=== PATIENT | female | born 1940 | race Caucasian/White ===

== ENCOUNTER → 2017-11-02 | Day surgery (SDC) | payer MEDICARE ==
[2017-11-01 09:35] LABS: BASOPHILS # (AUTO) 0.1 (0.0-0.1); BASOPHILS % 1.2 % (0.0-1.0); EOSINOPHILS # (AUTO) 0.3 (0.0-0.4); EOSINOPHILS % 4.9 % (0.0-6.0); HEMOGLOBIN 14.8 g/dL (12.0-16.0); LYMPHOCYTES # (AUTO) 1.3 (1.0-3.2); LYMPHOCYTES % 18.7 % (18.0-39.1); MEAN CORPUSCULAR HEMOGLOBIN 32.5 pg (28-32); MEAN CORPUSCULAR HGB CONC 33.6 g/dL (31-35); MEAN CORPUSCULAR VOLUME 96.7 fL (81-99); MONOCYTES # (AUTO) 0.6 (0.2-0.8); MONOCYTES % 9.2 % (4.4-11.3); NEUTROPHILS # (AUTO) 4.4 (2.1-6.9); PLATELET COUNT 227 x10e3/uL (140-360); RED BLOOD COUNT 4.55 x10e6/uL (3.6-5.1); RED CELL DISTRIBUTION WIDTH 12.3 % (11.7-14.4)
[~2017-11-02] MED LIST: ALBUTEROL SULF8.5 GM; ALBUTEROL2.5 MG/3 M INH; AMBIEN10 MG PO; ASPIR 8181 MG PO; BIOTIN2500 MCG PO; BREO INH; CALCIUM PO; CENTRUM SILVER1 EAC1; DORZOLAMIDE HCL10 ML OU; DULERA 100 MCG/13 GM IH; ESGIC 50-325-41 EACH PO; FENTANYL CITRATE/PF 100MCG/2 ML INJ ONE; FISH OIL 1,0001 EAC2 PO; FLUTICASONE PRO16 GM; GLIPIZIDE5 MG PO; IOPAMIDOL 200 MG/ML 20 ML VIAL IT ONE; KLOR-CON 1010 MEQ PO; LEVOTHYROXINE100 MCG PO; LIDOCAINE HCL 1% 30ML-PF VIAL ONE; LIDOCAINE HCL 2% LOCAL INJ 5 ML SDV VIAL INJ ONE; MELOXICAM7.5 MG PO; MIDAZOLAM HCL 2 MG/2 ML VIAL ONE; MONTELUKAST SOD10 MG PO; NITROFURANTOIN100 MG PO; OMEPRAZOLE40 MG PO; PRESERVISION T1 EACH PO; PROPOFOL IV EMULSION 10 MG/ML 50 ML VIAL ONE; RANITIDINE HCL150 MG PO; TRAZODONE PO; TRIAMCINOLONE ACET 40 MG/ML VIAL ONE; TYLENOL; VITAMIN D; VITAMIN D PO; VITAMIN D1000 UNI1 PO; VITAMIN D400 UNIT PO
--- OUTSIDE RECORDS SUMMARY | 2017-11-02 05:32 | XMS REPORT ---
Author Author [facility] Address Unknown Phone Unavailable Care Team Providers Care Car Tester Name Role Phone RILEY SHIRLEY Unavailable Unavailable Problems This patient has no known problems. Allergies, Adverse Reactions, Alerts This patient has no known allergies or adverse reactions. Medications This patient has no known medications. Results Test Description Test Time Test Comments Text Results Atomic Results Result Comments MRI SPINE LUMBAR WO [place] [id number] Patient Name: BAYLEE WILLSON MR #: [id number] : 1940 Age/Sex: 76/F Req #: [id number] [facility] Physician: Ordered by: RILEY SHIRLEY MD Report #: [id number] Location: MRI Room/Bed: Procedure: [id number] MRI/MRI SPINE LUMBAR WO Exam Date: 06/14/17 Exam Time: 0804 REPORT STATUS: Signed EXAMINATION: MRI of the lumbar spine without contrast HISTORY: Low back pain radiating to the right with numbness, sacroiliitis COMPARISON: Lumbar spine MRI and 04/30/2013 TECHNIQUE: Sagittal T1, T2, STIR; axial T2 and proton density. FINDINGS: It is assumed that there are 5 lumbar vertebrae. Curvature/Alignment: Normal lordosis. Persistent grade 1 degenerative anterolisthesis at L4-5 and L5-S1. Dextroscoliosis with apex at L3-L4 with left distal compensatory curve. Vertebrae: No evidence of recent fracture, infection, or neoplasm. Chronic endplate degenerative changes from L3 to L5 Conus: Normal, terminating at L1-L2 Cauda equina: Unremarkable. Lower thoracic: Unremarkable. Paraspinal soft tissues: Severe atrophy of the paraspinal muscles Degenerative changes : L1-L2: Unremarkable. L2-L3: Asymmetric to the right disc bulge and 2 mm left subarticular disc protrusion, bilateral facet arthrosis. Mild right foraminal stenoses, no significant canal stenosis L3-L4: Decreased disc height and T2 signal intensity, asymmetric to the right disc osteophyte and bilateral facet arthrosis. Mild canal and left foraminal stenosis. Moderate right foraminal stenoses L4-L5: Decreased disc height, asymmetric to the left disc osteophyte, ligamenta flava thickening and advanced facet arthrosis. Moderately severe spinal canal and left foraminal stenoses. L5-S1: Diffuse disc bulge and advanced facet arthrosis. Moderate spinal canal and mild left foraminal stenosis. Particularly there is effacement of the left lateral recess and minimal dorsal displacement of the traversing left S1 Sacroiliac joints: Mild degenerative changes, no acute inflammation or edema. IMPRESSION: 1. Unchanged grade 1 degenerative anterolisthesis at L4-5 and L5-S1. 2. Moderate to severe degenerative foraminal stenosis on the right at L3-L4 and on the left at L4-L5. 3. Moderately severe degenerative spinal canal stenosis at L4-5 and mild at L3-4 and L5-S1. Signed by: Dr. Kyrie Diana M.D. on 06/14/2017 10:54 AM Dictated By: KYRIE DIANA MD [id number] Transcribed By: ALBIN on 06/14/17 1058 COPY TO: RILEY SHIRLEY MD
== END | disposition home or self-care (01) ==
LOC: OR 05:29
PROVIDERS: ATTEND Physical Medicine & Rehabilitation Pain Medicine
DX: M46.1 Sacroiliitis, not elsewhere classified (principal); M54.16 Radiculopathy, lumbar region; M47.817 Spondylosis without myelopathy or radiculopathy, lumbosacral region; Z98.1 Arthrodesis status; Z96.652 Presence of left artificial knee joint; N20.0 Calculus of kidney; G47.33 Obstructive sleep apnea (adult) (pediatric); I51.9 Heart disease, unspecified; J44.9 Chronic obstructive pulmonary disease, unspecified; E07.9 Disorder of thyroid, unspecified; E11.9 Type 2 diabetes mellitus without complications; Z01.810 Encounter for preprocedural cardiovascular examination; Z01.812 Encounter for preprocedural laboratory examination; Z87.891 Personal history of nicotine dependence
CPT/HCPCS: 36415 ×2; 76000; 82948; 85025; 93005; G0260; J2001 ×2; J2250; J3301; Q9966

== ENCOUNTER → 2017-12-05 | Outpatient (CLI) | payer MEDICARE ==
[~2017-12-05] MED LIST changes: -FENTANYL CITRATE/PF 100MCG/2 ML INJ ONE; -IOPAMIDOL 200 MG/ML 20 ML VIAL IT ONE; -LIDOCAINE HCL 1% 30ML-PF VIAL ONE; -LIDOCAINE HCL 2% LOCAL INJ 5 ML SDV VIAL INJ ONE; -MIDAZOLAM HCL 2 MG/2 ML VIAL ONE; -PROPOFOL IV EMULSION 10 MG/ML 50 ML VIAL ONE; -TRIAMCINOLONE ACET 40 MG/ML VIAL ONE
--- NOTE | 2017-12-05 19:16 | Diagnostic Imaging Report ---
PROCEDURE: CT CHEST WITHOUT CONTRAST CT scan of the chest WITHOUT intravenous contrast, using standard protocol. TECHNIQUE: The chest was scanned utilizing a multidetector helical scanner from the apex to the level of the adrenal glands. No IV contrast was administered per physician's request. Coronal and sagittal multiplanar reformations were obtained. COMPARISON: [facility], CT, CT C-SPINE WO, 12/20/2016, 13:58. [facility], CT, CT CHEST WO, 12/23/2014, 10:47. [facility], CT, CT CHEST W/CONTRAST, 02/10/2011, 10:04. [facility], CT, CT CHEST WO, 12/22/2015, 14:20. [facility], CT, CT CHEST WO, 03/15/2016, 13:27. INDICATIONS: DYSPNEA FINDINGS: Lines/tubes: None. Lungs and Airways: Stable 4 mm nodular density in the medial right apex (series 3, image 12). 4 mm nodular density in the medial left apex (series 3, image 12). No other nodular densities. No masses or consolidation. Airways are clear, without endobronchial lesions. Pleura: The pleural spaces are clear. Heart and mediastinum: Thyroid is unremarkable. Heart size is normal. No pericardial effusion. Atherosclerotic calcification of the coronary arteries and thoracic aortic arch. Aorta is non-aneurysmal. Main pulmonary artery is in the upper limit of normal, measuring 3 x 1 cm. Lymph nodes: No mediastinal, hilar, or axillary adenopathy. Abdomen: Limited views of the upper abdomen show no abnormality within the visualized spleen, pancreas, or kidneys. Diffuse hepatic steatosis. No focal lesions. 5 mm calcified gallstone. The adrenal glands are normal. Bones: No aggressive lytic lesions. Degenerative disc changes in the thoracic spine. Anterior fusion hardware in the lower cervical spine is stable. Stable 6 mm nonaggressive appearing lucent lesion in the T4 vertebral body (series 2 image 18). Soft tissues are grossly unremarkable. Bilateral peripherally calcified breast implants. IMPRESSION: 1. Stable 4 mm nodular density in the medial right apex since 2015. 2. New 4 mm nodular density in the left apex. Recommend followup low dose nodule protocol noncontrast chest CT in 12 months to document stability. 3. Diffuse hepatic steatosis. Newton Rodriguez M.D. Dictated by: Newton Rodriguez M.D. on 12/05/2017 at 19:15 Electronically approved by: Newton Rodriguez M.D. on 12/05/2017 at 19:15
== END ==
LOC: CT 12:40
PROVIDERS: ATTEND Internal Medicine
DX: R06.09 Other forms of dyspnea (principal); R91.8 Other nonspecific abnormal finding of lung field
CPT/HCPCS: 71250

== ENCOUNTER → 2018-02-08 | Outpatient (CLI) | payer MEDICARE ==
--- NOTE | 2018-02-08 15:58 | Diagnostic Imaging Report ---
History: Headaches, new onset Comparison studies: None Technique: Sagittal T2; axial DWI, FLAIR, MPGR, T1, Coronal FLAIR. Intravenous contrast: None Findings: Scalp: Normal in signal . No masses . Bone marrow: Normal in signal intensity. Extra-axial: No masses, no fluid collections. Brain sulci: Mildly prominent. Ventricles: Mildly prominent . No hydrocephalus . Parenchyma: Scattered small T2/flair hyperintensities of the periventricular and deep white matter No masses, hemorrhage, acute or chronic vascular insults. Suprasellar region: No abnormalities. Craniocervical junction: No abnormalities. Patent foramen magnum. No Chiari one malformation. Vessels: Normal flow-voids in the arteries and sinuses. IMPRESSION: 1. No acute intracranial abnormalities. 2. Mild chronic microvascular ischemic changes of the white matter and mild diffuse volume loss Signed by: DR Doug Barber M.D. on 02/08/2018 3:55 PM
== END ==
LOC: MRI 13:40
PROVIDERS: ATTEND Psychiatry & Neurology Clinical Neurophysiology
DX: R51 Headache (principal)
CPT/HCPCS: 70551

== ENCOUNTER → 2018-04-13 | Outpatient (CLI) | payer MEDICARE ==
[~2018-04-13] MED LIST changes: +DIATRIZOATE MEGL/DIATRIZOA SOD 30 ML BTL PO ONE; +IOPAMIDOL 370 MG/ML 200 ML INFUS..BTL INJ ONE; +SODIUM CHLORIDE 0.9% 50ML 50 ML ONE
[2018-04-13 08:53] LABS: BLOOD UREA NITROGEN 10 mg/dL (7-26); BUN/CREATININE RATIO 14 (6-25); CREATININE, SERUM 0.71 mg/dL (0.57-1.11); EST GLOMERULAR FILTRATION RATE > 60 ML/MIN (60-)
--- NOTE | 2018-04-13 11:08 | Diagnostic Imaging Report ---
PROCEDURE: CT ABDOMEN AND PELVIS WITH CONTRAST TECHNIQUE: The abdomen and pelvis were scanned utilizing a multidetector helical scanner from the diaphragm to the lesser trochanter after the IV administration of 100 cc of Isovue 370 and the oral administration of Gastrografin mixed with water. Coronal and sagittal multiplanar reformations were obtained. DLP: 817.35 mGy-cm COMPARISON: CT chest dated 12/05/2017 INDICATIONS: LEFT LOWER ABDOMINAL PAIN, DIVERTICULITIS FINDINGS: LOWER THORAX: There are bilateral calcified breast implants. HEPATOBILIARY: No focal hepatic lesions. Decreased CT attenuation secondary to hepatic steatosis. No biliary ductal dilatation. Previously visualized small calcified gallstone not seen on this study. SPLEEN: No splenomegaly. PANCREAS: No focal masses or ductal dilatation. ADRENALS: No adrenal nodules. KIDNEYS/URETERS: No hydronephrosis or solid mass lesions. There is a 4-5 mm left upper pole nonobstructing renal stone. PELVIC ORGANS/BLADDER: Unremarkable. PERITONEUM / RETROPERITONEUM: No free air or fluid. LYMPH NODES: No lymphadenopathy. VESSELS: The mild atherosclerotic vascular calcification. GI TRACT: No distention or wall thickening. Small hiatal hernia. No evidence of diverticulitis. BONES AND SOFT TISSUES: Degenerative changes of the spine with almost complete fusion at L4-L5 with large anterior overhanging osteophyte. IMPRESSION: 1. Nonobstructing left upper pole renal stone. 2. Diffuse hepatic steatosis. 3. Small hiatal hernia. David Auguste D.O. Dictated by: David Auguste D.O. on 04/13/2018 at 11:13 Electronically approved by: David Auguste D.O. on 04/13/2018 at 11:13
== END ==
LOC: CT 08:14
PROVIDERS: ATTEND Internal Medicine Gastroenterology
DX: R10.32 Left lower quadrant pain (principal); R10.31 Right lower quadrant pain; R10.2 Pelvic and perineal pain; K57.93 Diverticulitis of intestine, part unspecified, without perforation or abscess with bleeding
CPT/HCPCS: 36415; 74177; 82565; 84520; Q9967

== ENCOUNTER → 2018-05-10 | Day surgery (SDC) | payer MEDICARE ==
[2018-05-09 11:03] LABS: BASOPHILS # (AUTO) 0.1 (0.0-0.1); BASOPHILS % 1.3 % (0.0-1.0); EOSINOPHILS # (AUTO) 0.6 (0.0-0.4); EOSINOPHILS % 8.8 % (0.0-6.0); HEMATOCRIT 42.4 % (34.2-44.1); HEMOGLOBIN 14.7 g/dL (12.0-16.0); LYMPHOCYTES # (AUTO) 1.5 (1.0-3.2); LYMPHOCYTES % 23.1 % (18.0-39.1); MEAN CORPUSCULAR HEMOGLOBIN 32.1 pg (28-32); MEAN CORPUSCULAR HGB CONC 34.7 g/dL (31-35); MEAN CORPUSCULAR VOLUME 92.6 fL (81-99); MONOCYTES # (AUTO) 0.7 (0.2-0.8); MONOCYTES % 11.3 % (4.4-11.3); NEUTROPHILS # (AUTO) 3.5 (2.1-6.9); NEUTROPHILS % 55.2 % (38.7-80.0); PLATELET COUNT 215 x10e3/uL (140-360); RED BLOOD COUNT 4.58 x10e6/uL (3.6-5.1); RED CELL DISTRIBUTION WIDTH 12.3 % (11.7-14.4)
[~2018-05-10] MED LIST changes: +BENICAR HCT 201 EACH PO; +BUPIVACAINE 0.25% 30ML SDV INJ ONE; -DIATRIZOATE MEGL/DIATRIZOA SOD 30 ML BTL PO ONE; +FENTANYL CITRATE/PF 100MCG/2 ML INJ ONE; +FUROSEMIDE40 MG PO; +IOPAMIDOL 200 MG/ML 20 ML VIAL IT ONE; -IOPAMIDOL 370 MG/ML 200 ML INFUS..BTL INJ ONE; +LIDOCAINE HCL 1% 30ML-PF VIAL ONE; +LIDOCAINE HCL 2% LOCAL INJ 5 ML SDV VIAL INJ ONE; +MIDAZOLAM HCL 2 MG/2 ML VIAL ONE; +PROPOFOL IV EMULSION 10 MG/ML 20 ML VIAL ONE; -SODIUM CHLORIDE 0.9% 50ML 50 ML ONE; +TRIAMCINOLONE ACET 40 MG/ML VIAL ONE
== END | disposition home or self-care (01) ==
LOC: OR 05:48
PROVIDERS: ATTEND Physical Medicine & Rehabilitation Pain Medicine
DX: M46.1 Sacroiliitis, not elsewhere classified (principal); G57.01 Lesion of sciatic nerve, right lower limb; M54.16 Radiculopathy, lumbar region; Z98.1 Arthrodesis status; G47.33 Obstructive sleep apnea (adult) (pediatric); J45.909 Unspecified asthma, uncomplicated; I10 Essential (primary) hypertension; E11.9 Type 2 diabetes mellitus without complications; K21.9 Gastro-esophageal reflux disease without esophagitis; K44.9 Diaphragmatic hernia without obstruction or gangrene; E07.9 Disorder of thyroid, unspecified; N20.0 Calculus of kidney; Z01.810 Encounter for preprocedural cardiovascular examination; Z01.812 Encounter for preprocedural laboratory examination; Z79.84 Long term (current) use of oral hypoglycemic drugs
CPT/HCPCS: 20552; G0260; 36415; 77002; 82948; 85025; 93005; J2001; J2250; J3301; Q9966

== ENCOUNTER → 2018-06-12 | Day surgery (SDC) | payer MEDICARE ==
[2018-06-11 11:45] LABS: BASOPHILS # (AUTO) 0.1 (0.0-0.1); BASOPHILS % 1.5 % (0.0-1.0); EOSINOPHILS # (AUTO) 0.3 (0.0-0.4); EOSINOPHILS % 5.2 % (0.0-6.0); HEMATOCRIT 41.3 % (34.2-44.1); HEMOGLOBIN 14.3 g/dL (12.0-16.0); LYMPHOCYTES # (AUTO) 1.5 (1.0-3.2); LYMPHOCYTES % 25.9 % (18.0-39.1); MEAN CORPUSCULAR HEMOGLOBIN 32.9 pg (28-32); MEAN CORPUSCULAR HGB CONC 34.6 g/dL (31-35); MEAN CORPUSCULAR VOLUME 95.2 fL (81-99); MONOCYTES # (AUTO) 0.6 (0.2-0.8); MONOCYTES % 10.6 % (4.4-11.3); NEUTROPHILS # (AUTO) 3.3 (2.1-6.9); NEUTROPHILS % 56.1 % (38.7-80.0); PLATELET COUNT 229 x10e3/uL (140-360); RED BLOOD COUNT 4.34 x10e6/uL (3.6-5.1); RED CELL DISTRIBUTION WIDTH 13.1 % (11.7-14.4)
[2018-06-11 11:51] LABS: ALANINE AMINOTRANSFERASE 27 IU/L (0-55); ALBUMIN 3.7 g/dL (3.5-5.0); ALBUMIN/GLOBULIN RATIO 1.1 (0.8-2.0); ALKALINE PHOSPHATASE 98 IU/L (40-150); ANION GAP 12.9 mmol/L (8-16); BLOOD UREA NITROGEN 16 mg/dL (7-26); BUN/CREATININE RATIO 21 (6-25); CALCIUM 10.4 mg/dL (8.4-10.2); CARBON DIOXIDE 28 mmol/L (22-29); CHLORIDE 103 mmol/L (98-107); CREATININE, SERUM 0.78 mg/dL (0.57-1.11); EST GLOMERULAR FILTRATION RATE > 60 ML/MIN (60-); GLUCOSE 152 mg/dL (74-118); POTASSIUM 3.9 mmol/L (3.5-5.1); SODIUM 140 mmol/L (136-145)
[~2018-06-12] VITALS: Ht 157.5 cm; Wt 99.3 kg
[~2018-06-12] MED LIST changes: +ALPRAZOLAM 0.5 MG TAB ONE; -BUPIVACAINE 0.25% 30ML SDV INJ ONE; -CENTRUM SILVER1 EAC1; +CENTRUM SILVER1 EAC1 PO; +DIPHENHYDRAMINE HCL 25 MG CAP ONE; +ELLURA PO; +HEPARIN SOD (PORCINE) 1000 UNIT/ML 30ML ONE; +HEPARIN SOD/SOD CHLORIDE 2,000 ML ONE; -IOPAMIDOL 200 MG/ML 20 ML VIAL IT ONE; +IOPAMIDOL 370 MG/ML 200 ML INFUS..BTL INJ ONE; -LIDOCAINE HCL 1% 30ML-PF VIAL ONE; +LIDOCAINE HCL 2% LOCAL 20 ML VIAL ONE; -LIDOCAINE HCL 2% LOCAL INJ 5 ML SDV VIAL INJ ONE; +NITROGLYCERIN/D5W 200 MCG/ML 250 ML ONE; -PROPOFOL IV EMULSION 10 MG/ML 20 ML VIAL ONE; +SODIUM CHLORIDE 0.9% 1000ML 1,000 ML ONE; -TRIAMCINOLONE ACET 40 MG/ML VIAL ONE; +VERAPAMIL HCL 2.5 MG/ML 2 ML VIAL ONE
[2018-06-12 17:23] VITALS: BP 148/73
[2018-06-12 17:40] VITALS: BP 155/73
[2018-06-12 17:55] VITALS: BP 197/96
[2018-06-12 18:10] VITALS: BP 175/79
[2018-06-12 18:25] VITALS: BP 161/73
--- NOTE | 2018-06-12 18:34 | Operative Report ---
DATE OF PROCEDURE: June 12, 2018 INDICATIONS: Coronary artery disease. Abnormal stress test. PROCEDURES PERFORMED: 1. Left heart catheterization, selective coronary angiography, left ventriculography. 2. Deployment of right wrist transradial band. COMPLICATIONS: None. RECOMMENDATIONS: Medical therapy. Access was obtained in the right radial artery. Ultrasound-guided 5-Yemeni sheath was placed. Diagnostic coronary angiogram revealed mild diffuse coronary artery disease with 20% to 30% luminal stenosis in all coronary vessels. Excellent flow. No critical stenosis or occlusions were noted. LV ejection fraction 65%. LV end-diastolic pressure of 12. No gradient across the aortic valve on pullback. Guide and sheath were removed. TR band applied. Patient discharged home same day. Job#: [id number] EV
[2018-06-12 18:40] VITALS: BP 164/79
== END | disposition home or self-care (01) ==
LOC: CATH LAB 12:56
PROVIDERS: ATTEND Internal Medicine Interventional Cardiology
DX: I25.118 Atherosclerotic heart disease of native coronary artery with other forms of angina pectoris (principal); R94.39 Abnormal result of other cardiovascular function study; J45.909 Unspecified asthma, uncomplicated; E11.9 Type 2 diabetes mellitus without complications; I89.0 Lymphedema, not elsewhere classified; E07.9 Disorder of thyroid, unspecified; Z01.812 Encounter for preprocedural laboratory examination; Z79.84 Long term (current) use of oral hypoglycemic drugs; Z68.38 Body mass index [BMI] 38.0-38.9, adult
CPT/HCPCS: 36415; 80053; 85025; 93458; C1887; J1644; J2001; J2250; J7030; Q9967

== ENCOUNTER → 2018-06-19 | Outpatient (CLI) | payer MEDICARE ==
[~2018-06-19] MED LIST changes: -ALPRAZOLAM 0.5 MG TAB ONE; -DIPHENHYDRAMINE HCL 25 MG CAP ONE; -FENTANYL CITRATE/PF 100MCG/2 ML INJ ONE; -HEPARIN SOD (PORCINE) 1000 UNIT/ML 30ML ONE; -HEPARIN SOD/SOD CHLORIDE 2,000 ML ONE; -IOPAMIDOL 370 MG/ML 200 ML INFUS..BTL INJ ONE; -LIDOCAINE HCL 2% LOCAL 20 ML VIAL ONE; -MIDAZOLAM HCL 2 MG/2 ML VIAL ONE; -NITROGLYCERIN/D5W 200 MCG/ML 250 ML ONE; -SODIUM CHLORIDE 0.9% 1000ML 1,000 ML ONE; -VERAPAMIL HCL 2.5 MG/ML 2 ML VIAL ONE
--- NOTE | 2018-06-19 15:58 | Diagnostic Imaging Report ---
MRI of the right hip without contrast. History: Hip pain. Decreased range of motion. Technique: Multiplanar multisequence MRI of the hip without contrast Findings: There is abnormal bone marrow edema in the right femoral head with a low signal intensity line through the superior femoral head extending to the cortex. This is best seen on series 6 image 12 through 14. There is apparent minimal depression of the anterior femoral head cortex best seen on sagittal series 7 image 29. Additionally, there is abnormal bone marrow edema along the superior lateral acetabulum. Several small subchondral cysts are seen in the region. There is a right hip joint effusion and synovitis which is thought to be reactive. There is degeneration and fraying of the labrum. The remainder of the visualized ligaments and tendons about the hip are intact. Scattered degenerative changes are seen about the visualized lower lumbar spine and pelvis. A similar appearing low signal intensity line is seen through the left femoral head. This is less pronounced when compared with the right. The visualized neurovascular bundles are intact. There is mild diffuse muscle atrophy. No ligamentous or tendon tear is seen. 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 Incidental note is made of less severe changes in the left femoral head. Signed by: Dr. Aron Pop M.D. on 06/19/2018 3:54 PM
== END ==
LOC: MRI 13:55
PROVIDERS: ATTEND Physical Medicine & Rehabilitation Pain Medicine
DX: M25.551 Pain in right hip (principal)

== ENCOUNTER → 2018-06-21 | Day surgery (SDC) | payer MEDICARE ==
[~2018-06-21] MED LIST changes: +BUPIVACAINE 0.25% 30ML SDV INJ ONE; +FENTANYL CITRATE/PF 100MCG/2 ML INJ ONE; +IOPAMIDOL 200 MG/ML 20 ML VIAL IT ONE; +LIDOCAINE HCL 2% LOCAL INJ 5 ML SDV VIAL INJ ONE; +MIDAZOLAM HCL 2 MG/2 ML VIAL ONE; +PROPOFOL IV EMULSION 10 MG/ML 20 ML VIAL ONE; +TRIAMCINOLONE ACET 40 MG/ML VIAL ONE
[2018-06-21 08:39] VITALS: BP 136/65
== END | disposition home or self-care (01) ==
LOC: OR 06:27
PROVIDERS: ATTEND Physical Medicine & Rehabilitation Pain Medicine
DX: M70.61 Trochanteric bursitis, right hip (principal); M16.11 Unilateral primary osteoarthritis, right hip; M46.1 Sacroiliitis, not elsewhere classified; M54.16 Radiculopathy, lumbar region; Z98.1 Arthrodesis status; I10 Essential (primary) hypertension; G47.33 Obstructive sleep apnea (adult) (pediatric); E11.9 Type 2 diabetes mellitus without complications; K21.9 Gastro-esophageal reflux disease without esophagitis; J45.909 Unspecified asthma, uncomplicated; E03.9 Hypothyroidism, unspecified; I45.5 Other specified heart block; Z98.61 Coronary angioplasty status; F41.9 Anxiety disorder, unspecified; Z79.84 Long term (current) use of oral hypoglycemic drugs; Z96.652 Presence of left artificial knee joint
CPT/HCPCS: 36415; 77003; 82948; J2001; J2250; J3301; Q9966

== ENCOUNTER → 2018-10-03 | Outpatient (CLI) | payer MEDICARE ==
[~2018-10-03] MED LIST changes: -BUPIVACAINE 0.25% 30ML SDV INJ ONE; -FENTANYL CITRATE/PF 100MCG/2 ML INJ ONE; -IOPAMIDOL 200 MG/ML 20 ML VIAL IT ONE; +IOPAMIDOL 370 MG/ML 200 ML INFUS..BTL INJ ONE; -LIDOCAINE HCL 2% LOCAL INJ 5 ML SDV VIAL INJ ONE; -MIDAZOLAM HCL 2 MG/2 ML VIAL ONE; -PROPOFOL IV EMULSION 10 MG/ML 20 ML VIAL ONE; +SODIUM CHLORIDE 0.9% 50ML 50 ML ONE; -TRIAMCINOLONE ACET 40 MG/ML VIAL ONE
[2018-10-03 09:10] LABS: BLOOD UREA NITROGEN 12 mg/dL (7-26); BUN/CREATININE RATIO 15 (6-25); CREATININE, SERUM 0.78 mg/dL (0.57-1.11); EST GLOMERULAR FILTRATION RATE > 60 ML/MIN (60-)
--- NOTE | 2018-10-03 10:58 | Diagnostic Imaging Report ---
EXAM: CT Chest WITH contrast INDICATION: Evaluate for pulmonary embolism. COMPARISON: None TECHNIQUE: Chest was scanned utilizing a multidetector helical scanner from the lung apex through the level of the diaphragm after administration of IV contrast. Thin section reconstructions were obtained with special concentration on the pulmonary arteries. Coronal and sagittal reformations were obtained. Pulmonary embolism protocol was performed. IV CONTRAST: 100 cc of Isovue 370 RADIATION DOSE: Total DLP: 567.8 mGy*cm COMPLICATIONS: None FINDINGS: LINES/ TUBES: None. PULMONARY ARTERIES: Main pulmonary artery measures 2.7 cm in diameter. Mildly limited evaluation secondary to motion artifact. The study is satisfactory for evaluation of pulmonary embolism to the level of the segmental pulmonary arteries. There is distal lobar and segmental PE in the right middle lobe pulmonary arteries (series 2, image 53). LUNGS AND AIRWAYS: The central airways are patent. There is a 3 mm solid pulmonary nodule in the left upper lobe on image 21 and a 5 mm subpleural nodule in the right upper lobe on image 20. There is a 5 mm subpleural right upper lobe nodule on image 29 and a 3 mm nodule in the right upper lobe on image 27. Patchy dependent atelectatic changes. Patchy groundglass opacity in the left upper lobe on images 34 and 42, likely infectious or inflammatory. Motion artifact at the lung bases limits evaluation for lung nodule. PLEURA: The pleural spaces are clear. HEART AND MEDIASTINUM: The thyroid gland is normal. No mediastinal, hilar or axillary lymphadenopathy. No cardiomegaly or pericardial effusion. Coronary and aortic atherosclerotic calcifications. UPPER ABDOMEN: Limited non-contrast views of the upper abdomen demonstrate no abnormality within the visualized liver, spleen, adrenal glands, or pancreas. There is 2 mm nonobstructing left midpole renal stone. BONES/SOFT TISSUES: Bilateral breast implants. No suspicious lytic or blastic lesions. IMPRESSION: Somewhat limited study secondary to contrast bolus and motion artifact. Study is positive for pulmonary embolism involving the distal lobar and segmental right middle lobe pulmonary arteries. No CT evidence of right heart strain or pulmonary infarct. The above findings were discussed with Dr. Arevalo, covering physician for Dr. Maynor Rodriguez on 10/03/2018 at 1045 AM. Bilateral solid pulmonary nodules measuring up to 5 mm. In a patient at low risk for malignancy, no further follow-up is suggested. If the patient has a smoking history or other risk factor for malignancy, an optional chest CT in 12 months may be considered. Ground glass patchy opacity in the left upper lobe, likely infectious or inflammatory. Signed by: Dr. Griselda Smith MD on 10/03/2018 10:54 AM
== END ==
LOC: CT 08:02
PROVIDERS: ATTEND Internal Medicine Interventional Cardiology
DX: I26.99 Other pulmonary embolism without acute cor pulmonale (principal); R06.02 Shortness of breath; R07.9 Chest pain, unspecified; R91.8 Other nonspecific abnormal finding of lung field
CPT/HCPCS: 36415; 71260; 82565; 84520; Q9967

== ENCOUNTER → 2018-11-06 | Day surgery (SDC) | payer MEDICARE ==
[2018-10-24 12:03] LABS: BASOPHILS # (AUTO) 0.1 (0.0-0.1); EOSINOPHILS # (AUTO) 0.3 (0.0-0.4); EOSINOPHILS % 3.6 % (0.0-6.0); HEMATOCRIT 39.8 % (34.2-44.1); HEMOGLOBIN 13.2 g/dL (12.0-16.0); LYMPHOCYTES # (AUTO) 1.2 (1.0-3.2); LYMPHOCYTES % 16.5 % (18.0-39.1); MEAN CORPUSCULAR HEMOGLOBIN 32.2 pg (28-32); MEAN CORPUSCULAR HGB CONC 33.2 g/dL (31-35); MEAN CORPUSCULAR VOLUME 97.1 fL (81-99); MONOCYTES # (AUTO) 0.7 (0.2-0.8); MONOCYTES % 9.3 % (4.4-11.3); NEUTROPHILS # (AUTO) 4.8 (2.1-6.9); PLATELET COUNT 276 x10e3/uL (140-360); RED CELL DISTRIBUTION WIDTH 13.6 % (11.7-14.4)
[2018-10-24 12:31] LABS: ALANINE AMINOTRANSFERASE 16 IU/L (0-55); ALBUMIN 3.7 g/dL (3.5-5.0); ALBUMIN/GLOBULIN RATIO 1.1 (0.8-2.0); ALKALINE PHOSPHATASE 103 IU/L (40-150); ANION GAP 15.2 mmol/L (8-16); BLOOD UREA NITROGEN 12 mg/dL (7-26); BUN/CREATININE RATIO 17 (6-25); CALCIUM 10.6 mg/dL (8.4-10.2); CARBON DIOXIDE 27 mmol/L (22-29); CHLORIDE 102 mmol/L (98-107); EST GLOMERULAR FILTRATION RATE > 60 ML/MIN (60-); GLUCOSE 124 mg/dL (74-118); POTASSIUM 4.2 mmol/L (3.5-5.1); SODIUM 140 mmol/L (136-145)
[2018-11-02 13:50] LABS: HEMATOCRIT 39.5 % (34.2-44.1); HEMOGLOBIN 13.4 g/dL (12.0-16.0); MEAN CORPUSCULAR HEMOGLOBIN 32.3 pg (28-32); MEAN CORPUSCULAR HGB CONC 33.9 g/dL (31-35); MEAN CORPUSCULAR VOLUME 95.2 fL (81-99); PLATELET COUNT 242 x10e3/uL (140-360); RED BLOOD COUNT 4.15 x10e6/uL (3.6-5.1); RED CELL DISTRIBUTION WIDTH 13.2 % (11.7-14.4)
[2018-11-02 14:11] LABS: ALANINE AMINOTRANSFERASE 17 IU/L (0-55); ALBUMIN 3.7 g/dL (3.5-5.0); ALBUMIN/GLOBULIN RATIO 1.2 (0.8-2.0); ALKALINE PHOSPHATASE 109 IU/L (40-150); BLOOD UREA NITROGEN 16 mg/dL (7-26); BUN/CREATININE RATIO 20 (6-25); CALCIUM 10.1 mg/dL (8.4-10.2); CARBON DIOXIDE 27 mmol/L (22-29); CHLORIDE 100 mmol/L (98-107); CREATININE, SERUM 0.81 mg/dL (0.57-1.11); EST GLOMERULAR FILTRATION RATE > 60 ML/MIN (60-); GLUCOSE 147 mg/dL (74-118); SODIUM 137 mmol/L (136-145)
[2018-11-02 19:30] LABS: EOSINOPHILS % (MANUAL) 2 % (0-7); LYMPHOCYTES % (MANUAL) 23 % (19-48); MONOCYTES % (MANUAL) 8 % (3.4-9.0); NEUTROPHILS % (MANUAL) 66 % (40-74)
[2018-11-02 19:31] LABS: PLATELET ESTIMATE ADEQUATE; PLATELET MORPHOLOGY COMMENT NORMAL; RBC MORPHOLOGY COMMENT NORMAL
[~2018-11-06] VITALS: Ht 157.5 cm; Wt 96.6 kg
[~2018-11-06] MED LIST changes: +ALTEPLASE 50 MG/VIAL (29 MILLION IU) IV ONE; +CALCIUM 500+D1 EACH PO; +FENTANYL CITRATE/PF 100MCG/2 ML INJ ONE; +HEPARIN SOD (PORCINE) 1000 UNIT/ML 30ML ONE; +HEPARIN SOD/SOD CHLORIDE 2,000 ML ONE; +IOPAMIDOL 300MG/ML 100 ML INFUS..BTL IV ONE; -IOPAMIDOL 370 MG/ML 200 ML INFUS..BTL INJ ONE; +LIDOCAINE HCL 1% LOCAL INJ 20 ML VIAL ONE; +MIDAZOLAM HCL 2 MG/2 ML VIAL ONE; +SODIUM CHLORIDE 0.9% 1000ML 0 ML ONE; +SODIUM CHLORIDE 0.9% 1000ML 1,000 ML ONE; -SODIUM CHLORIDE 0.9% 50ML 50 ML ONE; +XARELTO10 MG PO
--- OUTSIDE RECORDS SUMMARY | 2018-11-06 10:39 | XMS REPORT | Clinical Summary ---
Author Author [facility] Organization [facility] Address Unknown Phone Unavailable Care Team Providers Care Family Assistant Name Role Phone Yusuf Higginbotham PCP Allergies No Known Allergies Medications End Date Status Medication Sig Dispensed Refills Start Date Active albuterol (ACCUNEB) 2.5 albuterol 0 mg /3 mL (0.083 %) sulfate 2.5 nebulizer solution mg/3 mL (0.083 %) solution for nebulization Active fluticasone-vilanterol Breo Ellipta 0 (BREO ELLIPTA) 100-25 mcg/dose blister with device powder for inhalation Active biotin 5,000 mcg tablet, 5000 mcg 0 sublingual daily Active folic Centrum 0 acid/multivit-min/lutein Silver (CENTRUM SILVER ORAL) Active fluticasone-vilanterol Breo Ellipta 0 (BREO ELLIPTA) 100-25 100 mcg-25 mcg/dose blister with mcg/dose device powder for powder for inhalation inhalation Active dorzolamide-timolol dorzolamide 0 (COSOPT) 22.3-6.8 mg/mL 22.3 ophthalmic solution mg-timolol 6.8 mg/mL eye drops Active furosemide (LASIX) 20 mg furosemide 20 0 tablet mg tablet TK 1 T PO QD Active glipiZIDE (GLUCOTROL) 2.5 Take 2.5 mg 1 12/29/201 MG 24 hr tablet by mouth 2 8 (two) times a day. Active levothyroxine (SYNTHROID, Take 1 tablet 0 LEVOXYL) 88 mcg tablet every day by oral route. Active montelukast (SINGULAIR) Take 10 mg by 0 10 mg tablet mouth. Active omeprazole (PriLOSEC) 40 Take 40 mg by 1 12/28/201 MG capsule mouth daily. 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 Massive obesity really makes a plication both risky and Potentially likely to fail. As this is recent, Suggest observation , follow pfts, If worsening refer to Dr. Serna though I think operating on someone with heart failiure and bmi of 40 With a procedure likely to have higher risk of failiure in someone this obese is ill advised. L ast Assessment & Plan: Fluoro of diaphragm revealed paradox CT showed eventration of liver into right hemithorax, however pfts ( volumes) normal l ( 93-102% predicted; except dlco which was 72% predicted - which would not be affected by Eventration ) MIPS and MEPS normal l 65 -66 ) No desaturation with walk ( 320 m, Lowest sat 96% on room air.) PLAN: Lose weight, refluoroscopy of diaphragm in 3 -4 months to see if worsening, though likely eventration will leave this unchanged. If she loses weight and remains short of breath or becomes worse, would consider then Surgical referral to Dr. Serna for plication of diaphragm and repositioning of liver. Class 3 obesity in adult 02/08/2018 Overview: Patient obese But has gained about 40 lbs in the last 10 years. She also has marked buffalo hump and prior history of ?parathryroidectomy for recurrent renal calculi. Therefore some concern for metabolic cause of obesity and shortness of breath . Last Assessment & Plan: Needs weight loss, r ecommended weight loss clinic, and water exercises. As well as stationary bike . Her son gave her a treadmill which she is using for 15 minutes several times a day . KARLY on CPAP 02/08/2018 Overview: karly on cpap for 16 years . She is jehovah's witness. May need retitration study of her cpap, She also has a lot of trouble with her mask and wakens 5 times at night. Suggest her local mechanical systems design engineer refer her to the sleep center for Mask fitting and retitration of her cpap as though better with cpap after 16 years and 40 lbs weight gain she may need uptitration as well as new mask L ast Assessment & Plan: Patient needs re titration of her CPAP as she has gained weight since her initial diagnosis and titration , she may be desaturating at night which will aggravate PH and HFpEF. Please undertake ( Dr. Coty Gonzales, or Dr. Higginbotham) overnight oximetry and if she desaturates then she needs repeat sleep study with retitration. 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 But she did not have implantation of ectopic Parathyroid so not sure what was done. Given her obesity, weight gain, flushing, buffalo hump and constipation Will recheck parathyroid, thyroid and adrenal indices. L ast Assessment & Plan: Patient had recurrent (17) renal calculi in one year and was found to have a parathyroid problem Per patient Her parathyroid was removed. But she did not have implantation of ectopic Parathyroid so not sure what was done. Given her obesity, weight gain, flushing, buffalo hump and constipation Will recheck parathyroid, thyroid and adrenal indices. Pulmonary hypertension 02/07/2018 Overview: Patient with right heart cath showing relatively Mild PH PFTS External 12/06/2017 FEV1 1.74 103% FVC 2.46 100% TLC 108% DLCO 62% No BD response VQ here normal Heart cath : 09/2016 RA 16 RV 44/11 PA 42/20 ( 30) PCP 21 AO 129/77 LV 155/11 ( suggests aortic obstructon if these numbers are correct CO of 4.5 L/min with C1 of 3.2L/min/m2 noMVO2, no significant CAD LVEF estimate 65% No gradient suggests This is all just left sided in Origin though LVEDP is reported normal (11) though PAOP is high. No echo on chart. CT without contrast External Report from [facility] Lungs normal other than new nodule 2 mm in medial left apex. Old prior stable nodule 4 mm righ apex medial (done november 2017 - see notes ; repeat in May 2018) CXR Shows large LA impinging posteriorly no evidence of RV dilation, Some redistribution to the apices in flow consistent with a component of heart failure. Possible HFpEF on the basis of Obesity , diabetes and mild systemic hpertension No desaturation on walk test (lowest was 92% On room air with 320 m which is actually better than pedicted for herage and weight. in addition the BP at time of walk was also elevated 162/89 ( when I did it here in clinic after resting for 40 minute it was 167/70. Therefore most likely HFpEF However With sticking in throat, reduced DLCO She needs to have: CT scan high res Reviewed or repeated ENT evaluation of her chords And swallowing study for signs of esophagea dysmotility /Zenkers which might be contributing to both her prior history of recurrent infections and her current sensationof not being able to get enough air. ENT evaluation by Dr. Julian. Some vocal chord inflammation likely secondary to reflux, GERD. No other abnormalities 6 mw, no desaturation pfts normal Except DLCO which is 72% predicted Right and left heart cath , very mild PH with LVEDP of 11, wedge of 21 ( we have no echo ) LVEDP of 11, PA 40 /20 ie 10 mm gradient from LVEDP to PA diastolic ie minimal increase consistent with mild HFpEF Mean PA is 27 Which is elevated But She does not desaturate on Walk ( 320 m on room air no desat - lowest 96; little tachycardia 117 max) Does have herniated liver in right hemithorax. - Consider CPET and CT surgical referral but patient morbdly obese. Need weight loss. Last Assessment & Plan: 6 mw, no desaturation pfts normal Except DLCO which is 72% predicted Right and left heart cath , very mild PH with LVEDP of 11, wedge of 21 ( we have no echo ) LVEDP of 11, PA 40 /20 ie 10 mm gradient from LVEDP to PA diastolic ie minimal increase consistent with mild HFpEF Mean PA is 27 Which is elevated But She does not desaturate on Walk ( 320 m on room air no desat - lowest 96; little tachycardia 117 max) Does have herniated liver in right hemithorax. - Consider CPET and CT surgical referral but patient morbdly obese. Need weight loss. At this Time Recommend weight loss, (with Dr. [facility]'s weight loss clinic) bp management by Dr. Higginbotham with ARB or CCB If patient fails to improve with weight loss we will need repeat echo , Possible CPET and consideration of therapy for PH Hepatic steatosis 02/07/2018 Overview: Noted on CT scan. Pulmonary nodule 02/07/2018 Overview: On CT Prior 4 mm nodule in the right apex now with new nodule left apex. Also 4 mm. Need to review actual CT scans as initially only had reports. Pt. Advised to bring CT Tiny nodule on review of CT. Just needs Follow up in 6months. L ast Assessment & Plan: Dr. Coty Haq will be repeating cT in June 2018. Encounters Care Team Description Date Type Specialty Ryan Leon MD Pulmonary hypertension (Primary Dx) 03/13/2018 Office Visit Pulmonology Ryan Leon MD Hemidiaphragmatic eventration; Shortness of breath 02/21/2018 Hospital Pulmonology Encounter Ryan Leon MD Hemidiaphragmatic eventtion; Shortness of breath 02/21/2018 Hospital Pulmonology Encounter Ryan Leon MD Hemidiaphragmatic eventration; Shortness of breath 02/21/2018 Hospital Radiology Encounter Ryan Leon MD diaphgram paradox. 02/21/2018 Documentation Pulmonology Ryan Leon MD Hemidiaphragmatic eventrajoel (Primary Dx); Shortness of breath 02/14/2018 Orders Only Pulmonology Ryan Leon MD Hemidiaphragmatic eventcarmine (Primary Dx); Shortness of breath 02/14/2018 Orders Only Pulmonology Sarah Dean MD 02/13/2018 Hospital Radiology Encounter Ryan Leon MD 02/08/2018 Hospital Radiology Encounter Ryan Leon MD 02/08/2018 Hospital Radiology Encounter Ryan Leon MD Class 3 obesity due to excess calories without serious comorbidity with body mass index (BMI) of 40.0 to 44.9 in adult (Primary Dx); KARLY on CPAP; Shortness of breath; Heart failure with preserved ejection fraction; Pulmonary hypertension; Pulmonary nodule seen on imaging study; H/O parathyroid disease 02/08/2018 Office Visit Pulmonology Ryan Leon MD SOB (shortness of breath) 02/02/2018 Hospital Pulmonology Encounter Ryan Leon MD SOB (shortness of breath) 02/02/2018 Hospital Radiology Encounter Lindsey Sewell, SOB (shortness of breath) (Primary Dx) 01/29/2018 Orders Only Pulmonology after 11/05/2017 Family History Medical History Relation Name Comments No Known Problems Father No Known Problems Mother Relation Name Status Comments Father Mother Social History Date Tobacco Use Types Packs/Day Years Used Never Smoker Smokeless Tobacco: Never Used Tobacco Cessation: Counseling Given: Yes Alcohol Use Drinks/Week oz/Week Comments No Sex Assigned at Date Recorded Not on file Industry Job Start Date Occupation Not on file Not on file Not on file Travel End Travel History Travel Start No recent travel history available. Last Filed Vital Signs Time Taken Vital Sign Reading 03/13/2018 12:15 PM CDT Blood Pressure 158/78 03/13/2018 12:15 PM CDT Pulse 72 03/13/2018 12:15 PM CDT Temperature 36.4 C (97.6 F) - Respiratory Rate - 03/13/2018 12:15 PM CDT Oxygen Saturation 99% - Inhaled Oxygen - Concentration 03/13/2018 12:15 PM CDT Weight 106 kg (233 lb 3.2 oz) 03/13/2018 12:15 PM CDT Height 157.5 cm (5' 2") 03/13/2018 12:15 PM CDT Body Mass Index 42.65 Plan of Treatment Health Maintenance Due Date Last Done Comments SHINGLES VACCINES (1 of 1990 2) PNEUMOCOCCAL 2005 POLYSACCHARIDE VACCINE AGE 65 AND OVER PNEUMOCOCCAL-13 2005 INFLUENZA VACCINE 05/02/2018 07/02/2017 Procedures Comments Procedure Name Priority Date/Time Associated Diagnosis SPIROMETRY PRE AND POST Routine 02/21/2018 Hemidiaphragmatic WITH BRONCHILATOR, 12:35 PM CDT eventration DIFFUSION, LUNG VOLUMES, Shortness of breath MIPS/MEPS FL FLUOROSCOPY OF Routine 02/21/2018 Hemidiaphragmatic DIAPHRAGM NO FILMS 8:51 AM CDT eventration Shortness of breath ZZESTIMATED GFR Timed 02/08/2018 9:31 AM CDT IONIZED CALCIUM Timed 02/08/2018 Class 3 obesity due to 9:31 AM CDT excess calories without serious comorbidity with body mass index (BMI) of 40.0 to 44.9 in adult KARLY on CPAP Shortness of breath Heart failure with preserved ejection fraction Pulmonary hypertension Pulmonary nodule seen on imaging study H/O parathyroid disease ALDOLASE, SERUM Timed 02/08/2018 Class 3 obesity due to 9:31 AM CDT excess calories without serious comorbidity with body mass index (BMI) of 40.0 to 44.9 in adult KARLY on CPAP Shortness of breath Heart failure with preserved ejection fraction Pulmonary hypertension Pulmonary nodule seen on imaging study H/O parathyroid disease THYROID STIMULATING Timed 02/08/2018 Class 3 obesity due to HORMONE 9:31 AM CDT excess calories without serious comorbidity with body mass index (BMI) of 40.0 to 44.9 in adult KARLY on CPAP Shortness of breath Heart failure with preserved ejection fraction Pulmonary hypertension Pulmonary nodule seen on imaging study H/O parathyroid disease T4 Timed 02/08/2018 Class 3 obesity due to 9:31 AM CDT excess calories without serious comorbidity with body mass index (BMI) of 40.0 to 44.9 in adult KARLY on CPAP Shortness of breath Heart failure with preserved ejection fraction Pulmonary hypertension Pulmonary nodule seen on imaging study H/O parathyroid disease D-DIMER Timed 02/08/2018 Class 3 obesity due to 9:31 AM CDT excess calories without serious comorbidity with body mass index (BMI) of 40.0 to 44.9 in adult KARLY on CPAP Shortness of breath Heart failure with preserved ejection fraction Pulmonary hypertension Pulmonary nodule seen on imaging study H/O parathyroid disease CREATINE KINASE, TOTAL Timed 02/08/2018 Class 3 obesity due to (CPK) 9:31 AM CDT excess calories without serious comorbidity with body mass index (BMI) of 40.0 to 44.9 in adult KARLY on CPAP Shortness of breath Heart failure with preserved ejection fraction Pulmonary hypertension Pulmonary nodule seen on imaging study H/O parathyroid disease CORTISOL LEVEL, RANDOM Timed 02/08/2018 Class 3 obesity due to 9:31 AM CDT excess calories without serious comorbidity with body mass index (BMI) of 40.0 to 44.9 in adult KARLY on CPAP Shortness of breath Heart failure with preserved ejection fraction Pulmonary hypertension Pulmonary nodule seen on imaging study H/O parathyroid disease COMPREHENSIVE METABOLIC Timed 02/08/2018 Class 3 obesity due to PANEL 9:31 AM CDT excess calories without serious comorbidity with body mass index (BMI) of 40.0 to 44.9 in adult KARLY on CPAP Shortness of breath Heart failure with preserved ejection fraction Pulmonary hypertension Pulmonary nodule seen on imaging study H/O parathyroid disease HC COMPLETE BLD COUNT Timed 02/08/2018 Class 3 obesity due to W/AUTO DIFF 9:31 AM CDT excess calories without serious comorbidity with body mass index (BMI) of 40.0 to 44.9 in adult KARLY on CPAP Shortness of breath Heart failure with preserved ejection fraction Pulmonary hypertension Pulmonary nodule seen on imaging study H/O parathyroid disease B NATRIURETIC PEPTIDE Timed 02/08/2018 Class 3 obesity due to 9:31 AM CDT excess calories without serious comorbidity with body mass index (BMI) of 40.0 to 44.9 in adult KARLY on CPAP Shortness of breath Heart failure with preserved ejection fraction Pulmonary hypertension Pulmonary nodule seen on imaging study H/O parathyroid disease ADRENOCORTICOTROPIC Routine 02/08/2018 Class 3 obesity due to HORMONE 9:30 AM CDT excess calories without serious comorbidity with body mass index (BMI) of 40.0 to 44.9 in adult KARLY on CPAP Shortness of breath Heart failure with preserved ejection fraction Pulmonary hypertension Pulmonary nodule seen on imaging study H/O parathyroid disease SIX MINUTE WALK W/ PULSE Routine 02/02/2018 SOB (shortness of breath) OXIMETRY 1:15 PM CDT NM LUNG VENTILATION Routine 02/02/2018 SOB (shortness of breath) PERFUSION 11:[address] CHEST EXTERNAL STUDY Routine 12/05/2017 12:54 PM SERVICE DESK MANAGER after 11/05/2017 Results * Spirometry pre & post w/ bronchodilator, diffusion, lung volumes, MIPS/MEPS (02/21/2018 12:35 PM CDT) FEV1 Pre 1.72 L [facility] FEV1/FVC % Pre 68.02 % [facility] FVC Pre 2.53 L [facility] PEF Pre 5.62 L/s [facility] FEF 25-75% Pre 1.00 L/s [facility] DLCO Pre 13.66 12.41 - 25.41 [facility] ml/(min*mmHg) DL/VA Pre 3.70 2.95 - 5.59 [facility] ml/(min*mmHg*L) VA SB Pre 3.69 3.63 - 5.84 L [facility] DLCOc Pre 13.27 12.41 - 25.41 [facility] ml/(min*mmHg) KCOc SB Pre 3.59 2.95 - 5.59 [facility] ml/(min*mmHg*L) Hb Pre 14.40 g(Hb)/dL [facility] MIP Pre 61.46 22.20 - 73.82 cmH2O [facility] MEP Pre 63.53 17.91 - 100.56 cmH2O [facility] R0.5IN Pre 1.17 3.06 - 3.06 cmH2O*s/L [facility] FRCpl Pre 2.52 1.78 - 3.43 L [facility] RV Pre 2.02 1.51 - 2.66 L [facility] TLC Pre 4.45 3.62 - 5.59 L [facility] RV % TLC Pre 45.30 35.55 - 54.73 % [facility] VC Pre 2.43 1.84 - 3.14 L [facility] ERV Pre 0.51 0.52 - 0.52 L [facility] IC Pre 1.93 1.69 - 1.69 L [facility] sR0.5IN Pre 3.64 cmH2O*s [facility] Raw Pre 2.68 3.06 - 3.06 cmH2O*s/L [facility] sGaw Predicted 0.12 0.10 - 0.10 1/(cmH2O*s) [facility] FEV1 Predicted 1.86 [facility] FEV1 LLN 1.31 [facility] FEV1 % Pre of Predicted 92.7 % [facility] FVC Predicted 2.49 [facility] FVC LLN 1.84 [facility] FVC % Pre of Predicted 101.5 % [facility] FEV1/FVC % Predicted 74 [facility] FEV1/FVC % LLN 65 [facility] FEV1/FVC % Pre of 91.4 % [facility] Predicted FEF 25-75% Predicted 1.45 [facility] FEF 25-75% LLN 0.29 [facility] FEF 25-75% % Pre of 69.4 % [facility] Predicted PEF Predicted 4.77 [facility] PEF LLN 3.16 [facility] PEF % Pre of Predicted 117.9 % [facility] VC Predicted 2.49 [facility] VC LLN 1.84 [facility] VC % Pre of Predicted 97.6 % [facility] ERV Predicted 0.52 [facility] ERV LLN 0.52 [facility] ERV % Pre of Predicted 96.7 % [facility] FRCpl % Predicted 2.60 [facility] FRCpl % LLN 1.78 [facility] FRCpl % Pre of Predicted 96.8 % [facility] IC Predicted 1.69 [facility] IC LLN 1.69 [facility] IC % Pre of Predicted 114.2 % [facility] RV Predicted 2.08 [facility] RV LLN 1.51 [facility] RV % Pre of Predicted 96.8 % [facility] RV % TLC Predicted 45 [facility] RV % TLC LLN 36 [facility] RV % TLC % Pre of 100.4 % [facility] Predicted TLC Predicted 4.60 [facility] TLC LLN 3.62 [facility] TLC % Pre of Predicted 96.6 % [facility] Raw Predicted 3.06 [facility] Raw LLN 3.06 [facility] Raw % Pre of Predicted 87.8 % [facility] R0.5IN Predicted 3.06 [facility] R0.5IN LLN 3.06 [facility] R0.5IN % Pre of Predicted 38.4 % [facility] sGaw Predicted 0.10 [facility] sGaw LLN 0.10 [facility] sGaw % Pre of Predicted 117.6 % [facility] DLCO Predicted 18.91 [facility] DLCO LLN 12.41 [facility] DLCO % Pre of Predicted 72.2 % [facility] DLCOc Predicted 18.91 [facility] DLCOc LLN 12.41 [facility] DLCOc % Pre of Predicted 70.1 % [facility] DL/VA Predicted 4.27 [facility] DL/VA LLN 2.95 [facility] DL/VA % Pre of Predicted 86.6 % [facility] KCOc SB Predicted 4.27 [facility] KCOc SB LLN 2.95 [facility] KCOc SB % Pre of 84.1 % [facility] Predicted VA SB Predicted 4.73 [facility] VA SB LLN 3.63 [facility] VA SB % Pre of Predicted 78.0 % [facility] MIP Predicted 48.01 [facility] MIP LLN 22.20 [facility] MIP % Pre of Predicted 128.0 % [facility] MEP Predicted 59.24 [facility] MEP LLN 17.91 [facility] MEP % Pre of Predicted 107.2 % [facility] MVV Predicted 68 [facility] MVV LLN 58 [facility] Performing Organization Address [facility] Phone Number [facility] [address] [place] [address] * [place] Fluoroscopy Of Diaphragm No Films (02/21/2018 8:51 AM CDT) Narrative Performed At EXAMINATION:FL FLUOROSCOPY OF DIAPHRAGM NO FILMS [facility]IANT CLINICAL HISTORY: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 COMPARISON:None. TECHNIQUE: Real-time video fluoroscopic observation of diaphragmatic motion in normal respiration, deep respiration and using the Sniff test. FLUOROSCOPIC TIME:0.7 minute .2images obtained. FINDINGS: Mild to moderate right hemidiaphragmatic elevation with paradoxical motion. Left hemidiaphragm demonstrates nothing unusual. 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 COMPARISON: None. TECHNIQUE: Real-time video fluoroscopic observation of diaphragmatic motion in normal respiration, deep respiration and using the Sniff test. FLUOROSCOPIC TIME: 0.7 minute . 2 images obtained. FINDINGS: Mild to moderate right hemidiaphragmatic elevation with paradoxical motion. Left hemidiaphragm demonstrates nothing unusual. 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 [facility]-[id number] Performing Organization Address [facility] Phone Number [facility] [address] [place] [address] * Estimated GFR (02/08/2018 9:31 AM CDT) GFR Non Af Amer 81 mL/min/1.73 m2 [facility] DEPARTMENT OF PATHOLOGY AND GENOMIC MEDICINE GFR Af Amer >90 mL/min/1.73 m2 [facility] DEPARTMENT OF Comment: PATHOLOGY AND Chronic kidney disease: <60 GENOMIC MEDICINE mL/min/1.73m2 Kidney failure: <15 mL/min/1.73m2 The estimated GFR is calculated from the IDMS-traceable Modification of Diet in Renal Disease Equation. The accuracy of the calculation is poor when the creatinine is normal. Calculated values >90 mL/min/1.73m2 are not reported. This equation has not been validated in children (<18 years), women, the elderly (>70 years), or ethnic groups other than Caucasians and Americans. Specimen Plasma specimen Performing Organization Address City/[facility]/Zipcode Phone Number [facility] DEPARTMENT OF [address] [place] [address] PATHOLOGY AND [employer] MEDICINE * Aldolase, serum (02/08/2018 9:31 AM CDT) Aldolase 3.9 1.5 - 8.1 U/L [facility] Comment: REFERENCE INTERVAL: Aldolase Access complete set of age- and/or gender-specific reference intervals for this test in the [facility] Laboratory Test Directory ([employer]). Performed by [employer], [address] [place], [place] [id number] [email or web address], Cecilio Ross MD - Lab. Director Specimen Serum Performing Organization Address [facility]ode Phone Number [email or web address] [address] [place] [address] * D-dimer (02/08/2018 9:31 AM CDT) D-dimer 0.46 (H) 0.00 - 0.40 ug/mL FEU [facility] DEPARTMENT OF Comment: PATHOLOGY AND Units are ug/ml Fibrinogen GENOMIC MEDICINE Equivalent Unit. When combined with low clinical probability, D-dimer results of less than 0.5 ug/ml FEU have a good negativepredictive value in excluding PE or DVT. For D-dimer results greater than 0.5ug/ml FEU further testing is indicated if PE or DVT is suspectedclinically. Elevated D-dimer results have been reported in DVT, PE, and DIC cases and may indicate the presence of a clot. D-dimer results may be elevated due to old age, , inflammatory diseases, trauma, post-operative states, sepsis, and malignancies. Specimen Blood Performing Organization Address [facility]/Zipcode Phone Number [facility] DEPARTMENT OF [address] [place] [id number] PATHOLOGY AND GENOMIC MEDICINE * CBC with platelet and differential (02/08/2018 9:31 AM CDT) WBC 4.97 4.50 - 11.00 k/uL [facility] DEPARTMENT OF PATHOLOGY AND GENOMIC MEDICINE RBC 4.02 (L) 4.20 - 5.50 m/uL [facility] DEPARTMENT OF PATHOLOGY AND GENOMIC MEDICINE HGB 14.4 12.0 - 16.0 g/dL [facility] DEPARTMENT OF PATHOLOGY AND GENOMIC MEDICINE HCT 39.8 37.0 - 47.0 % [facility] DEPARTMENT OF PATHOLOGY AND GENOMIC MEDICINE MCV 99.0 82.0 - 100.0 fL [facility] DEPARTMENT OF PATHOLOGY AND GENOMIC MEDICINE MCH 35.8 (H) 27.0 - 34.0 pg [facility] DEPARTMENT OF PATHOLOGY AND GENOMIC MEDICINE MCHC 36.2 31.0 - 37.0 g/dL [facility] DEPARTMENT OF PATHOLOGY AND GENOMIC MEDICINE RDW - SD 45.6 37.0 - 55.0 fL [facility] [facility] PATH[facility] AND GENOMIC MEDICINE MPV 9.1 8.8 - 13.2 fL [facility] DEPARTMENT OF PATHOLOGY AND GENOMIC MEDICINE Platelet count 213 150 - 400 k/uL [facility] OF PATHOLOGY AND GENOMIC MEDICINE Nucleated RBC 0.00 /100 WBC [facility] OF PATHOLOGY AND GENOMIC MEDICINE Neutrophils 58.8 39.0 - 69.0 % [facility] OF PATHOLOGY AND GENOMIC MEDICINE Lymphocytes 23.1 (L) 25.0 - 45.0 % [facility] OF PATHOLOGY AND GENOMIC MEDICINE Monocytes 10.5 (H) 0.0 - 10.0 % [facility] OF PATHOLOGY AND GENOMIC MEDICINE Eosinophils 5.2 (H) 0.0 - 5.0 % [facility] DE[facility] OF PATHOLOGY AND GENOMIC MEDICINE Basophils 1.6 (H) 0.0 - 1.0 % [facility] DEPARTMENT OF PATHOLOGY AND GENOMIC MEDICINE Immature granulocytes 0.8Comment: "Immature 0.0 - 1.0 % [facility] DEPARTMENT OF granulocytes" (promyelocytes, PATHOLOGY AND myelocytes, metamyelocytes) GENOMIC MEDICINE Specimen Blood Performing Organization Address City/State[facility] Phone Number [facility] [place] [address] [address] [place] [address] PATHOLOGY AND GENOMIC MEDICINE * Thyroid stimulating hormone (02/08/2018 9:31 AM CDT) TSH 2.07 0.27 - 4.20 uIU/mL [facility] DEPARTMENT OF PATHOLOGY AND GENOMIC MEDICINE Specimen Plasma specimen Performing Organization Address City/[facility] Phone Number [facility] [place] [address] PATHOLOGY AND GENOMIC MEDICINE * T4 (02/08/2018 9:31 AM CDT) T4 9.2 4.5 - 11.7 ug/dL [facility] DEPARTMENT OF PATHOLOGY AND GENOMIC MEDICINE Specimen Plasma specimen Performing Organization Address [facility] Phone Number [facility] [place] [address] PATHOLOGY AND GENOMIC MEDICINE * B natriuretic peptide (02/08/2018 9:31 AM CDT) BNP 43 0 - 100 pg/mL [facility] DEPARTMENT OF PATHOLOGY AND GENOMIC MEDICINE Specimen Blood Performing Organization Address [facility] Phone Number [facility] [place] [address] PATHOLOGY AND GENOMIC MEDICINE * Creatine kinase, total (CPK) (02/08/2018 9:31 AM CDT) Creatine kinase 63 26 - 192 U/L [facility] DEPARTMENT OF PATHOLOGY AND GENOMIC MEDICINE Specimen Plasma specimen Performing Organization Address [facility] Phone Number [facility] [place] [address] PATHOLOGY AND GENOMIC MEDICINE * Cortisol level, random (02/08/2018 9:31 AM CDT) Cortisol, random 9 ug/dL [facility] DEPART[facility] OF Comment: PATHOLOGY AND Reference Ranges are not GENOMIC MEDICINE established for non-timed Cortisol levels. Reference Range for Timed Cortisol: 6 - 10 AM 6 - 18 ug/dl 4 - 8PM 3 - 11 ug/dl Specimen Plasma specimen Performing Organization Address [facility] Phone Number [facility] [place] [address] PATHOLOGY AND GENOMIC MEDICINE * Ionized calcium (02/08/2018 9:31 AM CDT) pH 7.40 [facility] DEPARTMENT OF PATHOLOGY AND GENOMIC MEDICINE Ionized calcium 1.25 1.11 - 1.32 mmol/L [facility] DEPARTMENT OF PATHOLOGY AND GENOMIC MEDICINE Specimen Plasma specimen Performing Organization Address [facility] Phone Number [facility] [place] [address] PATHOLOGY AND GENOMIC MEDICINE * Comprehensive metabolic panel (02/08/2018 9:31 AM CDT) Sodium 143 135 - 148 mEq/L [facility] DEPARTMENT OF PATHOLOGY AND GENOMIC MEDICINE Potassium 4.6 3.5 - 5.0 mEq/L [facility] DEPARTMENT OF PATHOLOGY AND GENOMIC MEDICINE Chloride 103 98 - 112 mEq/L [facility] DEPARTMENT OF PATHOLOGY AND GENOMIC MEDICINE CO2 30 24 - 31 mEq/L [facility] DEPARTMENT OF PATHOLOGY AND GENOMIC MEDICINE Anion gap 10 7 - 15 mEq/L [facility] DEPARTMENT OF Comment: PATHOLOGY AND Starting from December [facility] , anion gap calculation no longer incorporates potassium. Please note the change. BUN 11 8 - 23 mg/dL [facility] DEPARTMENT OF PATHOLOGY AND GENOMIC MEDICINE Creatinine 0.7 0.5 - 0.9 mg/dL [facility] DEPARTMENT OF PATHOLOGY AND GENOMIC MEDICINE Glucose 181 (H) 65 - 99 mg/dL [facility] DEPARTMENT OF PATHOLOGY AND GENOMIC MEDICINE Calcium 10.3 (H) 8.8 - 10.2 mg/dL [facility] DEPARTMENT OF PATHOLOGY AND GENOMIC MEDICINE Protein 7.2 6.3 - 8.3 g/dL [facility] DEPARTMENT OF Comment: PATHOLOGY AND [place] GENOMIC MEDICINE 4.6-7.0 g/dL 1 week 4.4-7.6 g/dL 7 months-1year 5.1-7.3 g/dL 1-2 years5.6-7 .5 g/dL >3 years6.0-8 .0 g/dL 18-150 6.3-8.3 g/dL Albumin 3.5 3.5 - 5.0 g/dL [facility] DEPARTMENT OF PATHOLOGY AND GENOMIC MEDICINE A/G ratio 0.9 0.7 - 3.8 [facility] DEPARTMENT OF PATHOLOGY AND GENOMIC MEDICINE Alkaline phosphatase 107 (H) 35 - 104 U/L [facility] DEPARTMENT OF PATHOLOGY AND GENOMIC MEDICINE AST 21 10 - 35 U/L [facility] DEPARTMENT OF PATHOLOGY AND GENOMIC MEDICINE ALT 26 5 - 50 U/L [facility] DEPARTMENT OF PATHOLOGY AND GENOMIC MEDICINE Total bilirubin <0.2 0.0 - 1.2 mg/dL [facility] DEPARTMENT OF PATHOLOGY AND GENOMIC MEDICINE Specimen Plasma specimen Performing Organization Address City/State/Zipcode Phone Number [address] [address] PATHOLOGY AND GENOMIC MEDICINE * Adrenocorticotropic hormone (02/08/2018 9:30 AM CDT) Adrenocorticotropic 30.2 7.2 - 63.3 pg/mL [facility] DEPARTMENT OF hormone PATHOLOGY AND GENOMIC MEDICINE Specimen Blood Performing Organization Address City/State/Zipcode Phone Number [place] [address] [place] [address] PATHOLOGY AND GENOMIC MEDICINE * Six minute walk w/ pulse oximetry (02/02/2018 1:15 PM CDT) Heart Rate at Rest 71.00 1/min [facility] SPO2 at Rest 96.00 % [facility] BP Systolic at Rest 129.00 mmHg [facility] BP Diastolic at Rest 85.00 mmHg [facility] Supplemental O2 at Rest 0.00 L/min [facility] Heart Rate after 1 minute 100.00 1/min [facility] SPO2 after 1 minute 98.00 % [facility] Supplemental O2 after 1 0.00 L/min [facility] minute Heart Rate after 2 113.00 1/min [facility] minutes SPO2 after 2 minutes 96.00 % [facility] Supplemental O2 after 2 0.00 L/min [facility] minutes Heart Rate after 3 117.00 1/min [facility] minutes SPO2 after 3 minutes 93.00 % [facility] Supplemental O2 after 3 0.00 L/min [facility] minutes Heart Rate after 4 115.00 1/min [facility] minutes SPO2 after 4 minutes 92.00 % [facility] Supplemental O2 after 4 0.00 L/min [facility] minutes Heart Rate after 5 114.00 1/min [facility] minutes SPO2 after 5 minutes 93.00 % [facility] Supplemental O2 after 5 0.00 L/min [facility] minutes Six Minute Walk Distance 320.00 175.28 - 453.28 m [facility] in m Heart Rate after 6 94.00 1/min [facility] minutes Highest Heart Rate 117.00 1/min [facility] SPO2 after 6 minutes 94.00 % [facility] Lowest SpO2 92.00 % [facility] Premature Stop 0.00 [facility] BP Systolic after 6 162.00 mmHg [facility] minutes BP Diastolic after 6 89.00 mmHg [facility] minutes Supplemental O2 after 6 0.00 L/min [facility] minutes Lap Count 8.00 [facility] Six Minute Walk Distance [facility] Predicted Performing Organization Address City/State/Zipcode Phone Number [facility] [address] [place] [address] * NM Lung Ventilation Perfusion (02/02/2018 11:31 AM CDT) Narrative Performed At PROCEDURE:NM LUNG VENTILATION PERFUSION RADIANT INDICATION:Shortness of breath. COMPARISON:No comparison imaging. TECHNIQUE:Planar ventilation images were acquired after the inhalation of 15 mCi of Xe-133 gas. Planar perfusion images were acquired after the IV administration of 5 mCi of Tc-99m MAA. FINDINGS:Ventilation images demonstrate decreased ventilation to the lung periphery and right lung base. Washout images demonstrate no gas trapping.Perfusion images demonstrate decreased perfusion to the lung periphery and right lung base, matching the ventilation images.No suspicious mismatched defects. IMPRESSION: 1.Low probability for acute PE. 2.No evidence for chronic PE. [facility]-[id number] Procedure Note [facility], Radiology Results Incoming - 02/02/2018 12:02 PM CDT PROCEDURE: NM LUNG VENTILATION PERFUSION INDICATION: Shortness of breath. COMPARISON: No comparison imaging. TECHNIQUE: Planar ventilation images were acquired after the inhalation of 15 mCi of Xe-133 gas. Planar perfusion images were acquired after the IV administration of 5 mCi of Tc-99m MAA. FINDINGS: Ventilation images demonstrate decreased ventilation to the lung periphery and right lung base. Washout images demonstrate no gas trapping. Perfusion images demonstrate decreased perfusion to the lung periphery and right lung base, matching the ventilation images. No suspicious mismatched defects. IMPRESSION: 1. Low probability for acute PE. 2. No evidence for chronic PE. [facility]-[id number] Performing Organization Address City/[facility] Phone Number [facility] [address] [place] [address] * CT Chest External Study (12/05/2017 12:54 PM SERVICE DESK MANAGER) Narrative Performed At This exam was not acquired at a [facility] facility and has not been [employer] interpreted by a [facility] Provider.The exam was imported into our imaging system for comparisons purposes. Performing Organization Address City/[facility]/Zipcode Phone Number [facility] [address] [place] [address] after 11/05/2017 Insurance Payer Benefit Subscriber ID Type Phone Address Plan / Group HUMANA MEDICARE HUMANA xxxxxxxxx PPO MEDICARE PPO/PFFS/E [facility] Advance Directives Patient has advance care planning documents on file. For more information, von horan contact: Kumar [facility] [address] [facility] [place] [address]
--- NOTE | 2018-11-06 11:00 | NUR ---
Received to pre-op room #20 ambulatory with walker. A&O x3. Pre-op assessment complete, 20g IV started to left AC, VSS, jose d. pedal pulses strong, FSBS 117, see interventions.
[2018-11-06 11:10] VITALS: BP 150/75
[2018-11-06 15:00] VITALS: BP 133/66
--- NOTE | 2018-11-06 15:10 | NUR ---
bedside report received from Miladis BACON. Alert oriented and appropriate, PERRLA, respirations even and unlabored to room air. Pulses x4 equal and weak Pedal pulses PT/DP palpable. Cap fill brisk > 3 sec. Skin warm and dry integrity appears intact. No IV. Abdomen soft and supple. Family at bedside. Pt and family verbalizes understanding of POC post procedure. Micro sheath to lower leg left lateral superior, and a 6fr sheath to left anterior ankle area, all venous access. Currently w/o complaint of pain or need. bedside monitor. VS wnl. pt w/o immediate need. -cgf
[2018-11-06 15:15] VITALS: BP 122/71
[2018-11-06 15:30] VITALS: BP 139/85
--- NOTE | 2018-11-06 15:30 | NUR ---
Sheath pull of micro catheter performed by Werner. 10 minute hold.
[2018-11-06 15:45] VITALS: BP 139/73
--- NOTE | 2018-11-06 15:45 | NUR ---
6 fr sheath pulled from anterior ankle area. 10 minute hold. right leg with 2 layer wrap applied. first layer of kerlex followed by Coban.
--- NOTE | 2018-11-17 23:54 | Operative Report ---
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 PROCEDURES PERFORMED 1. Venogram of the left femoral, popliteal and iliac arteries. 2. Thrombectomy of the left femoral vein. COMPLICATIONS: None. RECOMMENDATIONS: Lifelong anticoagulation. Ultrasound-guided access was obtained in the left posterior tibial vein. A second ultrasound-guided access was obtained in the left great saphenous vein. Great saphenous vein was cannulated at the iliac vein for which a venogram was performed. Complete occlusion of the femoropopliteal veins was noted. Some thrombus in the iliac veins was noted. AngioJet thrombectomy was performed of the femoral, popliteal as well as iliac veins with amish of flow. No angioplasty was deemed necessary. Sheath was removed under manual pressure. Patient was discharged home same day. Job#: [id number] BARBARA
== END | disposition home or self-care (01) ==
LOC: CATH LAB 10:36
PROVIDERS: ATTEND Internal Medicine Interventional Cardiology
DX: I82.402 Acute embolism and thrombosis of unspecified deep veins of left lower extremity (principal); I25.10 Atherosclerotic heart disease of native coronary artery without angina pectoris; J45.909 Unspecified asthma, uncomplicated; E11.9 Type 2 diabetes mellitus without complications; E07.9 Disorder of thyroid, unspecified; Z01.812 Encounter for preprocedural laboratory examination; Z79.02 Long term (current) use of antithrombotics/antiplatelets; Z79.84 Long term (current) use of oral hypoglycemic drugs; Z96.659 Presence of unspecified artificial knee joint
CPT/HCPCS: 36012; 36415 ×3; 37187; 75820; 80053 ×2; 82948; 85007; 85025; 85027; C1769 ×3; J1644; J2001; J2250; J7030; Q9967; C1757; C1887

== ENCOUNTER → 2018-12-05 | Outpatient (CLI) | payer MEDICARE ==
[~2018-12-05] MED LIST changes: -ALTEPLASE 50 MG/VIAL (29 MILLION IU) IV ONE; -FENTANYL CITRATE/PF 100MCG/2 ML INJ ONE; -HEPARIN SOD (PORCINE) 1000 UNIT/ML 30ML ONE; -HEPARIN SOD/SOD CHLORIDE 2,000 ML ONE; -IOPAMIDOL 300MG/ML 100 ML INFUS..BTL IV ONE; -LIDOCAINE HCL 1% LOCAL INJ 20 ML VIAL ONE; -MIDAZOLAM HCL 2 MG/2 ML VIAL ONE; -SODIUM CHLORIDE 0.9% 1000ML 0 ML ONE; -SODIUM CHLORIDE 0.9% 1000ML 1,000 ML ONE
--- NOTE | 2018-12-06 05:36 | Diagnostic Imaging Report ---
EXAM: CT Chest WITHOUT contrast INDICATION: Pulmonary nodule follow-up. COMPARISON: PE chest CT 10/03/2018 TECHNIQUE: Chest was scanned utilizing a multidetector helical scanner from the lung apex through the level of the adrenal glands without administration of IV contrast. Absence of intravenous contrast decreases sensitivity for detection of lymphadenopathy and vascular pathology. Coronal and sagittal reformations were obtained. Routine protocol was performed. IV CONTRAST: None COMPLICATIONS: None RADIATION DOSE: Total DLP: 465.74 mGy*cm Estimated effective dose: (DLP x 0.014 x size factor) mSv Dose modulation, iterative reconstruction, and/or weight based adjustment of the mA/kV was utilized to reduce the radiation dose to as low as reasonably achievable. FINDINGS: LINES/ TUBES: None. LUNGS AND AIRWAYS: New pulmonary nodules, including (series 3): * Left upper lobe clustered nodules measuring up to 5 mm (image 38) Stable pulmonary nodules, including (series 3): * Right upper lobe 5 mm nodule (image 16) * Right upper lobe 3 mm nodule (image 26) * Left upper lobe 4 mm nodule (image 15) * Left upper lobe 2 mm nodule (image 21) Less conspicuous nodules and opacities, including (series 3): * Right upper lobe 7 mm nodular opacity (image 36), previously 1.3 cm and patchy groundglass appearing. * Previous left upper lobe patchy groundglass opacities, currently resolved * Previously noted right upper lobe 5 mm subpleural nodule, currently resolved No consolidations. Bilateral lower lobe atelectasis. PLEURA: The pleural spaces are clear. HEART AND MEDIASTINUM: The thyroid gland is normal. No mediastinal, hilar or axillary lymphadenopathy. The heart is normal in size.. There is no pericardial effusion. Main pulmonary artery measures 2.9 cm. Ascending aorta measures 3.6 cm. Scattered aortic and coronary artery calcifications. UPPER ABDOMEN: Cholelithiasis. Eventration of the right hemidiaphragm. BONES: There are degenerative changes in the thoracic spine. Incompletely visualized anterior cervical fusion hardware. SOFT TISSUES: Peripherally calcified breast implants. Left pectoralis minor incompletely visualized intramuscular lipoma, visualized portion measuring 3.1 x 0.9 cm. Stable 1 cm nodule in the medial upper right breast (series 2 image 19). IMPRESSION: New clustered left upper lobe pulmonary nodules, likely infectious or inflammatory. Resolution and decrease of some of the previous patchy and groundglass opacities, also suggesting infectious or inflammatory etiology. Remaining stable nodules as above. Recommend follow-up per Fleischner Society 2017 guidelines. Stable medial upper right breast 1 cm nodule. Recommend correlation with prior mammogram. If future mammogram not desired, consider attention on follow-up chest CT. Cholelithiasis. Signed by: DR. Orville Miller MD on 12/06/2018 5:32 AM
== END ==
LOC: CT 14:16
PROVIDERS: ATTEND Internal Medicine
DX: R91.1 Solitary pulmonary nodule (principal)
CPT/HCPCS: 71250

== ENCOUNTER → 2019-01-25 | Outpatient (CLI) | payer MEDICARE ==
--- NOTE | 2019-01-25 18:16 | Diagnostic Imaging Report ---
History: Head and neck pain, numbness in fingers. Comparison studies: None Technique: Sagittal T1, T2 and IR, axial T2 and axial gradient echo Intravenous contrast: None Findings: Alignment: Straightening of the cervical lordosis minimal grade 1 anterolisthesis of C4 over C5. No scoliosis Cervicomedullary junction: No abnormalities. Patent foramen magnum. Soft tissues: No T2 hyperintense inflammatory changes. Spinal cord: Normal in size and signal from the foramen magnum through T4. Anterior and intervertebral fusion with plate and screws from C5 through C7 Vertebrae: Normal in height and signal intensity. No fractures, infection or neoplasm. Degenerative changes: C2-C3: Disc degeneration with loss of T2 signal. Right uncinate processes and facet hypertrophy results in mild right foraminal narrowing without significant canal stenosis. C3-C4: Disc degeneration with loss of T2 signal. Bilateral uncinate process and right facet hypertrophy results in moderate right foraminal narrowing without significant canal stenosis. C4-C5: Disc degeneration with loss of T2 signal and decreased intervertebral space. Bilateral uncinate hypertrophy and facet hypertrophy results in no significant canal stenosis and mild bilateral foraminal narrowing. C5-C6: Bilateral uncinate process and facet hypertrophy results in mild right foraminal narrowing without significant canal stenosis. C6-C7: Bilateral uncinate process hypertrophy and facet hypertrophy without significant canal stenosis and mild bilateral foraminal narrowing Degenerative C7-T1: Patent canal and foramina Mild mucosal thickening at the sphenoid sinus partially visualized. IMPRESSION: 1. Anterior fusion from C5 through C7 without complication. 2. Moderate right degenerative foraminal narrowing at C3-4. Mild multilevel degenerative foraminal narrowing as described above. No significant canal stenosis. Signed by: DR Doug Barber M.D. on 01/25/2019 6:13 PM
== END ==
LOC: MRI 07:39
PROVIDERS: ATTEND Family Medicine
DX: M54.2 Cervicalgia (principal); Z98.1 Arthrodesis status
CPT/HCPCS: 72141

== ENCOUNTER → 2019-04-25 | Day surgery (SDC) | payer MEDICARE ==
[2019-04-23 17:32] LABS: BASOPHILS # (AUTO) 0.1 (0.0-0.1); BASOPHILS % 1.1 % (0.0-1.0); EOSINOPHILS # (AUTO) 0.4 (0.0-0.4); HEMATOCRIT 36.7 % (34.2-44.1); HEMOGLOBIN 13.9 g/dL (12.0-16.0); LYMPHOCYTES # (AUTO) 1.4 (1.0-3.2); LYMPHOCYTES % 20.5 % (18.0-39.1); MEAN CORPUSCULAR HEMOGLOBIN 37.7 pg (28-32); MEAN CORPUSCULAR HGB CONC 37.9 g/dL (31-35); MEAN CORPUSCULAR VOLUME 99.5 fL (81-99); MONOCYTES # (AUTO) 0.7 (0.2-0.8); NEUTROPHILS # (AUTO) 4.1 (2.1-6.9); NEUTROPHILS % 61.9 % (38.7-80.0); PLATELET COUNT 222 x10e3/uL (140-360); RED BLOOD COUNT 3.69 x10e6/uL (3.6-5.1); RED CELL DISTRIBUTION WIDTH 12.9 % (11.7-14.4)
[2019-04-23 18:33] LABS: EOSINOPHILS % (MANUAL) 11 % (0-7); LYMPHOCYTES % (MANUAL) 25 % (19-48); MONOCYTES % (MANUAL) 6 % (3.4-9.0); NEUTROPHILS % (MANUAL) 58 % (40-74)
[2019-04-23 18:36] LABS: RBC MORPHOLOGY COMMENT NORMAL
[2019-04-23 18:37] LABS: PLATELET ESTIMATE ADEQUATE; PLATELET MORPHOLOGY COMMENT NORMAL
[~2019-04-25] MED LIST changes: +BENZONATATE100 MG PO; +BUPIVACAINE 0.25% 30ML SDV INJ ONE; +GUAIFENESIN-CO118 ML PO; +IOPAMIDOL 200 MG/ML 20 ML VIAL IT ONE; +KEFLEX; +LIDOCAINE HCL 1% 30ML-PF VIAL ONE; +LIDOCAINE HCL 2% LOCAL INJ 5 ML SDV VIAL INJ ONE; +METHYLPREDNISOLONE PO; +MYRBETRIQ50 MG PO; +PROPOFOL IV EMULSION 10 MG/ML 20 ML VIAL ONE; +TRIAMCINOLONE ACET 40 MG/ML VIAL ONE
--- OUTSIDE RECORDS SUMMARY | 2019-04-25 05:33 | XMS REPORT | Clinical Summary ---
Author Author [facility] Address Unknown Phone Unavailable Care Team Providers Care Geologist Name Role Phone Yusuf Higginbotham PCP Allergies [...] 0 acid/multivit-min/lutein Silver (CENTRUM SILVER ORAL) Active dorzolamide-timolol dorzolamide 0 (COSOPT) 22.3-6.8 mg/mL 22.3 ophthalmic solution mg-timolol 6.8 mg/mL eye drops Active furosemide (LASIX) 20 mg furosemide 40 0 tablet mg tablet TK 1 T PO QD Active glipiZIDE (GLUCOTROL) 2.5 Take 2.5 mg 1 MG 24 hr tablet by mouth 2 8 (two) times a day. Active levothyroxine (SYNTHROID, Take 1 tablet 0 LEVOXYL) 88 mcg tablet every day by oral route. Active montelukast (SINGULAIR) Take 10 mg by 0 10 mg tablet mouth. Active omeprazole (PriLOSEC) 40 Take 40 mg by 1 MG capsule mouth daily. 8 Active XARELTO 20 mg tablet 1 TABLET WITH 3 FOOD ONCE A 9 DAY ORALLY 30 Active fluticasone propionate 2 sprays by 1 (FLONASE) 50 Each Nare 9 mcg/actuation nasal spray route daily. Active meloxicam (MOBIC) 7.5 mg TAKE 1 TABLET 1 tablet BY MOUTH 9 EVERY DAY NEEDED FOR PAIN Active docosahexanoic acid/epa Take by 0 (FISH OIL ORAL) mouth. Active calcium carbonate-vitamin Take 1 tablet 0 D3 500 mg-200 unit per by mouth 2 tablet (two) times a day with meals. 01/09/2019 Discontinued fluticasone-vilanterol Breo Ellipta 0 (BREO ELLIPTA) 100-25 100 mcg-25 mcg/dose blister with mcg/dose device powder for powder for inhalation inhalation 01/09/2019 Discontinued montelukast (SINGULAIR) daily. 0 10 mg tablet 01/09/2019 Discontinued levothyroxine (SYNTHROID, daily. 0 LEVOXYL) 88 mcg tablet 01/09/2019 Discontinued glipiZIDE (GLUCOTROL) 2.5 daily. 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 If she loses weight and remains short of breath or becomes worse, would consider then surgical referral to Dr. Serna for plication of diaphragm and repositioning of liver. Class 2 obesity due to excess calories with body mass index (BMI) of 38.0 02/08/2018 to 38.9 in adult Overview: Patient obese But has gained about 40 lbs in the last 10 years. She also has marked buffalo hump and prior history of ?parathryroidectomy for recurrent renal calculi. Therefore some concern for metabolic cause of obesity and shortness of breath . Last Assessment & Plan: Obesity is unchanged. Discussed the patient's BMI. The BMI is above average; BMI management plan is completed. General weight loss/lifestyle modification strategies discussed (elicit support from others; identify saboteurs; non-food rewards, etc). Informal exercise measures discussed, e.g. taking stairs instead of elevator. Regular aerobic exercise program discussed. KARLY on CPAP 02/08/2018 Overview: karly on cpap for 16 years . She is zoroastrianism. May need retitration study of her cpap, She also has a lot of trouble with her mask and wakens 5 times at night. Suggest her local fishing hand refer her to the sleep center for Mask fitting and retitration of her cpap as though better with cpap after 16 years and 40 lbs weight gain she may need uptitration as well as new mask L ast Assessment & Plan: karly on cpap for 16 years . She is zoroastrianism. 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 CT without contrast External Report from [facility] Lungs normal other than new nodule 2 [...] Need weight loss. 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 Now comes back with worsening sob. Which has started to get worse in the last 3-4 months. Had acute PE three months ago. Since then sob is getting worse and now much worse. FCIV symptoms. Unable to walk few steps wtihout getting sob Plan to admit her today Start diuresis Get HRCT, VQ and LE doppler. Concern for CTEPH now. Or acute PE Continue anticoagulation Depending on the echo and VQ findings will plan cath with or without PA alexandra Called Dr Arevalo and gave him the report Hepatic steatosis 02/07/2018 Overview: Noted on CT [...] Encounters Care Team Description Date Type Specialty Lui Arevalo MD Lee, Kelvin M., MD 01/09/2019 [facility] Cardiology - Encounter 01/10/2019 Gustavo Richardson MD Pulmonary hypertension (HCC) (Primary Dx); Diaphragm paralysis; KARLY on CPAP; Shortness of breath; Class 2 severe obesity due to excess calories with serious comorbidity and body mass index (BMI) of 38.0 to 38.9 in adult (HCC); Pulmonary nodule 01/09/2019 Office Visit Pulmonology after 04/24/2018 Family History Medical History Relation Name Comments [...] Vital Signs Time Taken Vital Sign Reading 01/10/2019 3:12 PM CDT Blood Pressure 148/77 01/10/2019 3:12 PM CDT Pulse 65 01/10/2019 3:12 PM CDT Temperature 35.7 C (96.2 F) 01/10/2019 3:12 PM CDT Respiratory Rate 18 01/10/2019 3:12 PM CDT Oxygen Saturation 95% - Inhaled Oxygen - Concentration 01/10/2019 4:15 AM CDT Weight 95.6 kg (210 lb 12.8 oz) 01/09/2019 10:51 AM CDT Height 157.5 cm (5' 2") 01/09/2019 10:51 AM CDT Body Mass Index 38.56 Plan of Treatment Health Maintenance Due Date Last Done Comments SHINGLES VACCINES (#1) 1990 65+ PNEUMOCOCCAL VACCINE 2005 (1 of 2 - PCV13) INFLUENZA VACCINE 05/02/2019 07/02/2017 Implants Device Identifier Shelf Expiration Date Model / Serial / Lot Implanted Type Area Manufactur er Breast Breast Procedures Comments Procedure Name Priority Date/Time Associated Diagnosis ARTERIAL BLOOD GAS Routine 01/10/2019 3:41 PM CDT DOUG Routine 01/10/2019 3:30 PM CDT ANTI-NEUTROPHILIC Routine 01/10/2019 CYTOPLASMIC ABS PANEL 3:30 PM CDT SS-B ANTIBODY Routine 01/10/2019 3:23 PM CDT SS-A ANTIBODY Routine 01/10/2019 3:23 PM CDT CYCLIC CITRULLINATED Routine 01/10/2019 PEPTIDE AB, IGG 3:23 PM CDT POC GLUCOSE Routine 01/10/2019 11:32 AM CDT POC GLUCOSE Routine 01/10/2019 8:00 AM CDT ESTIMATED GFR Routine 01/10/2019 4:00 AM CDT BASIC METABOLIC PANEL Routine 01/10/2019 4:00 AM CDT B NATRIURETIC PEPTIDE Routine 01/10/2019 2:30 AM CDT HC COMPLETE BLD COUNT Routine 01/10/2019 W/AUTO DIFF 2:30 AM CDT SEDIMENTATION RATE Routine 01/09/2019 10:47 PM CDT DOUG Routine 01/09/2019 9:37 PM CDT C-REACTIVE PROTEIN Routine 01/09/2019 9:36 PM CDT RHEUMATOID FACTOR Routine 01/09/2019 9:36 PM CDT ECHOCARDIOGRAM 2D Routine 01/09/2019 COMPLETE W MMODE SPECTRAL 9:10 PM CDT COLOR DOPPLER ([id number]) POC GLUCOSE Routine 01/09/2019 9:06 PM CDT NM LUNG VENTILATION Routine 01/09/2019 PERFUSION 7:[address] CHEST WO CONTRAST Routine 01/09/2019 6:30 PM CDT US DUPLEX VENOUS LOWER Routine 01/09/2019 EXTREMITY BILATERAL 5:21 PM CDT after 04/24/2018 Results * Arterial blood gas (01/10/2019 3:41 PM CDT) [facility] pH, arterial 7.43 7.35 - 7.45 [facility] pCO2, arterial 35 35 - 45 mmHg [facility] pO2, arterial 84 80 - 90 mmHg [facility] Bicarbonate, 22.9 21.0 - 28.0 mmol/L [facility] Base excess, 0 -2 - 2 mEq/L [facility] O2 saturation, 97 95 - 100 % [facility] Specimen Blood Performing Organization Address City/[facility] Phone Number [facility] DEPARTMENT OF [address] [place] [address] PATHOLOGY AND [facility] MEDICINE [address] * Anti-neutrophilic cytoplasmic Abs panel (01/10/2019 3:30 PM CDT) [facility] ANCA screen Negative Negative [facility] Specimen Blood Performing Organization Address City/State/[facility] Phone Number [facility] [place] [address] PATHOLOGY AND [facility] MEDICINE [address] * DOUG (01/10/2019 3:30 PM CDT) Only the most recent of 2 results within the time period is included. [facility] DOUG screen Negative Negative [facility] Specimen Blood Performing Organization Address City/State/Zipcode Phone Number [facility] DEPARTMENT OF [address] [place] [address] * SS-B antibody (01/10/2019 3:23 PM CDT) Pathologist [facility] Sjogren's SS-B <0.2 0.0 - 0.9 [facility] antibody [facility] SS-B antibody Negative [facility] inter Comment: CHEONDOISM SS-B/La antibody is seen in HOSPITAL patients with Sjogren syndrome, but may also be positive with systemic lupus erythematosus (SLE), and systemic sclerosis. Specimen Serum Performing Organization Address [facility]/Zipcode Phone Number [facility] DEPARTMENT [address] * SS-A antibody (01/10/2019 3:23 PM CDT) Pathologist [facility] Sjogren's SS-A <0.2 0.0 - 0.9 [facility] antibody [facility] SS-A antibody Negative [facility] inter Comment: CHEONDOISM SS-A antibody is sensitive for HOSPITAL Sjogren's syndrome, but may also be positive with systemic lupus erythematosus (SLE), and systemic sclerosis. Specimen Serum Performing Organization Address [facility] Phone Number [facility] DEPARTMENT [address] * Cyclic citrullinated peptide antibody, IgG (01/10/2019 3:23 PM CDT) Pathologist [facility] Cyclic <0.5 0.0 - 2.9 U/mL [place] citrullin Comment: CHEONDOISM peptide Ab Anti-cyclic citrullinated HOSPITAL peptide (Anti-CCP) IgG antibodies are present in 60-80% of patients with rhuematoid arthritis (RA) and have specificity of 95-98%. These autoantibodies may be present in the preclinical phase of thedisease, are associated with future RA development and may be useful in predicting increased severity and erosive disease course. Specimen Serum Performing Organization Address City/State/Zipcode Phone Number [facility] [place] [address] PATHOLOGY AND GENOMIC MEDICINE [address] * POC glucose (01/10/2019 11:32 AM CDT) Only the most recent of 3 results within the time period is included. [facility] POC glucose 119 (H) 65 - 99 mg/dL [place] Comment: CHEONDOISM No Action Needed HOSPITAL Meter ID: [id number] Nursing Assistant: Sebastian Dexter Specimen Performing Organization Address City/[facility] Phone Number [facility] [place] [address] PATHOLOGY [facility] MEDICINE [address] * Estimated GFR (01/10/2019 4:00 AM CDT) [facility] Estimated GFR 78 mL/min/1.73 m2 [place] Comment: [facility] rpretation G1 >=90 Normal or high G2 60-89Mildly decreased G3q26-95 Mildly to moderately decreased K6p68-82 Moderately to severely decreased G4 15-29Severely decreased G5 <15Kidney failure The eGFR was calculated using the Chronic Kidney Disease Epidemiology Collaboration (CKD-EPI) equation. Interpretation is based on recommendations of the National Kidney Foundation-Kidney Disease Outcomes Quality Initiative (NKF-KDOQI) published in 2014. Specimen Plasma specimen Performing Organization Address [facility] Phone Number [facility] DEPARTMENT [address] * Basic metabolic panel (01/10/2019 4:00 AM CDT) [facility] Sodium 140 135 - 148 mEq/L [facility] Potassium 3.7 3.5 - 5.0 mEq/L [facility] Chloride 101 98 - 112 mEq/L [facility] CO2 24 24 - 31 mEq/L [facility] Anion gap 15@ANIO 7 - 15 mEq/L [facility] BUN 9 8 - 23 mg/dL [facility] Creatinine 0.74 0.50 - 0.90 mg/dL [facility] Glucose 96 65 - 99 mg/dL [facility] Calcium 9.5 8.8 - 10.2 mg/dL [facility] Specimen Plasma specimen Performing Organization Address City/State/Zipcode Phone Number [facility] DEPARTMENT OF [address] [place] [id number] PATHOLOGY AND GENOMIC MEDICINE [id number] [place] [address] * CBC with platelet and differential (01/10/2019 2:30 AM CDT) WBC 6.87 4.50 - 11.00 k/uL [facility] RBC 3.67 (L) 4.20 - 5.50 m/uL [facility] HGB 13.4 12.0 - 16.0 g/dL [facility] HCT 36.2 (L) 37.0 - 47.0 % [facility] MCV 98.6 82.0 - 100.0 fL [facility] MCH 36.5 (H) 27.0 - 34.0 pg [facility] MCHC 37.0 31.0 - 37.0 g/dL [facility] RDW - SD 50.6 37.0 - 55.0 fL [facility] MPV 9.1 8.8 - 13.2 fL [facility] Platelet count 233 150 - 400 k/uL [facility] Nucleated RBC 0.00 /100 WBC [facility] Neutrophils 62.2 39.0 - 69.0 % [facility] Lymphocytes 20.7 (L) 25.0 - 45.0 % [facility] Monocytes 11.5 (H) 0.0 - 10.0 % [facility] Eosinophils 4.1 0.0 - 5.0 % [facility] Basophils 0.9 0.0 - 1.0 % [facility] Immature 0.6Comment: "Immature 0.0 - 1.0 % [place] granulocytes granulocytes" (promyelocytes, CHEONDOISM myelocytes, metamyelocytes) HOSPITAL Specimen Blood Performing Organization Address City/State/Zipcode Phone Number [facility] DEPARTMENT [address] [address] PATHOLOGY AND GENOMIC MEDICINE [id number] [place] [address] * B natriuretic peptide (01/10/2019 2:30 AM CDT) BNP 38 0 - 100 pg/mL [facility] Specimen Blood Performing Organization Address City/State/Zipcode Phone Number [facility] DEPARTMENT OF [address] [place] [id number] PATHOLOGY AND GENOMIC MEDICINE [address] * Sedimentation rate (01/09/2019 10:47 PM CDT) Sedimentation 17 0 - 20 mm/hr [facility] Specimen Blood Performing Organization Address City/[facility] Phone Number [facility] [place] [address] PATHOLOGY AND GENOMIC MEDICINE [address] * Rheumatoid factor (01/09/2019 9:36 PM CDT) Rheumatoid <10 0 - 13 IU/mL [facility] Specimen Plasma specimen Performing Organization Address City/[facility] Phone Number [facility] [place] [address] PATHOLOGY AND GENOMIC MEDICINE [address] * C-reactive protein (01/09/2019 9:36 PM CDT) Pathologist [facility] CRP <0.30 0.00 - 0.50 mg/dL [facility] Specimen Plasma specimen Performing Organization Address City/[facility] Phone Number [facility] [place] [address] PATHOLOGY AND GENOMIC MEDICINE [address] * Echocardiogram complete w contrast and 3D if needed (01/09/2019 9:10 PM CDT) Specimen Narrative Performed At [facility] Echocardiography Report [address] [place] [address] Pat.Name:BAYLEE DE LEON Pat.ID:[id number] .Date: 01/09/2019 Refer.MD:FILOMENA ARROYO MD Exam Time: 8:20:00 PMStudy Type:Routine Echo Height:62inWeight:215lb BSA: 1.97 m2 DOBAge:1940,78Y Sex: FEMALEBP:193/77 HR:110 bpm Sonogrphr: Miguel DHALIWAL Pat. Stat.:Inpatient Room:F 1109 A Study Status:Final Echo Event ID:[id number] Order ID:[id number] Reason for Study:pulmonary hypertension, worsening shortness of breath History / Clinical:Diabetes, Pulmonary Hypertension Procedures:2D Echo, Colorflow Doppler, Intravenous Optison Contrast SUMMARY: LV size is normal. LV EF is hyperdynamic. Estimated EF is >70%. RV size is normal. RV systolic function is normal. FINDINGS: LV: LV size is normal. LV EF is hyperdynamic. Overall wall motionis hyperdynamic. Estimated EF is >70%. RV: RV size is normal. RV systolic function is normal. LA: LA size is normal. RA: RA size is normal. AO: Aortic root diameter is not well visualized. LIZANDRO: No pericardial effusion. AV: Aortic valve not well seen. MV: No structural MV abnormalities noted. PV: Pulmonic valve not well seen. TV: No structural TV abnormalities noted. Georges: LV filling pressure is normal. Other:Insufficient TR jet to estimate PA systolic pressure. MEASUREMENTS: 2D Parasternal Long Mccormick LVIDd3.8 cmIndex1.9 cm/m LVPWd0.8 cm LVIDs2.2 cmLV Mass 93.4 g(87-129) LV%fs 42.7 % LVM Index 47.4 g/m2 IVSd 0.9 cmRWT0.4 LA Sng Plane LA Area 17.7 cm2(8.8-23.4) LA Vol49.6 ml Index25.2 ml/m LA LngAx 5.3 cm Signed 01/10/2019 01:56 PM Lv Francois M.D. Procedure Note Interface, Radiology Results In - 01/10/2019 1:57 PM CDT Echocardiography Report [id number] [facility], [place] [address], [place] [address] Pat.Name: BAYLEE DE LEON.ID: [id number] .Date: 01/09/2019 Refer.MD: FILOMENA ARROYO MD Exam Time: 8:20:00 PM Study Type:Routine Echo Height: 62in Weight: 215lb BSA: 1.97 m2 Age: 3 1940,78Y Sex: FEMALE BP: 193/77 HR: 110 bpm Sonogrphr: Miguel Douglass [facility] Pat. Stat.:Inpatient Room: F 1109 A Study Status:Final Echo Event ID:[id number] Order ID: [id number] Reason for Study:pulmonary hypertension, worsening shortness of breath History / Clinical:Diabetes, Pulmonary Hypertension Procedures:2D Echo, Colorflow Doppler, Intravenous Optison Contrast SUMMARY: LV size is normal. LV EF is hyperdynamic. Estimated EF is >70%. RV size is normal. RV systolic function is normal. FINDINGS: LV: LV size is normal. LV EF is hyperdynamic. Overall wall motion is hyperdynamic. Estimated EF is >70%. RV: RV size is normal. RV systolic function is normal. LA: LA size is normal. RA: RA size is normal. AO: Aortic root diameter is not well visualized. LIZANDRO: No pericardial effusion. AV: Aortic valve not well seen. MV: No structural MV abnormalities noted. PV: Pulmonic valve not well seen. TV: No structural TV abnormalities noted. Georges: LV filling pressure is normal. Other: Insufficient TR jet to estimate PA systolic pressure. MEASUREMENTS: 2D Parasternal Long Mccormick LVIDd 3.8 cm Index 1.9 cm/m LVPWd 0.8 cm LVIDs 2.2 cm LV Mass 93.4 g (87-129) LV%fs 42.7 % LVM Index 47.4 g/m2 IVSd 0.9 cm RWT 0.4 LA Sng Plane LA Area 17.7 cm2 (8.8-23.4) LA Vol 49.6 ml Index 25.2 ml/m LA LngAx 5.3 cm Signed 01/10/2019 01:56 PM Lv Francois M.D. Performing Organization Address City/State/Zipcode Phone Number [facility] [address] [place] [address] * [place] Lung Ventilation Perfusion (01/09/2019 7:26 PM CDT) Specimen Narrative Performed At CLINICAL HISTORY: Pulmonary hypertensionworsening dyspnea [facility] TECHNIQUE: The patient breathed 15-20 mCi of xenon-133 gas through a closed ventilation system while dynamic imaging of the lungs was performed in the posterior and anterior projections. The patient was then injected with 5 mCi of [id number] intravenously, followed by imaging of the lungs in anterior, posterior, and oblique projections. FINDINGS: Mild, nonsegmental perfusion defect ZECHARIAH, on LPO view only. Normal ventilation. IMPRESSION: Very Low Probability for pulmonary embolism. RACHEL Procedure Note Interface, Radiology Results Incoming - 01/09/2019 7:36 PM CDT CLINICAL HISTORY: Pulmonary hypertension worsening dyspnea TECHNIQUE: The patient breathed 15-20 mCi of xenon-133 gas through a closed ventilation system while dynamic imaging of the lungs was performed in the posterior and anterior projections. The patient was then injected with 5 mCi of [id number] intravenously, followed by imaging of the lungs in anterior, posterior, and oblique projections. FINDINGS: Mild, nonsegmental perfusion defect ZECHARIAH, on LPO view only. Normal ventilation. IMPRESSION: Very Low Probability for pulmonary embolism. FRANSICO-PC Performing Organization Address City/State/Zipcode Phone Number [facility] [address] [place] [address] * CT Chest Wo Contrast (01/09/2019 6:30 PM CDT) Specimen Narrative Performed At EXAMINATION: CHANO GARCIA CT CHEST WO CONTRAST CLINICAL HISTORY: Pulmonary hypertensionworsening dyspnea TECHNIQUE: Multiple axial images of the chest were obtained without intravenous contrast. The lack of intravenous contrast reduces the sensitivity of detecting solid organ disease and evaluating vasculature. Sagittal and coronal computerized reformatted images were also obtained. High-resolution images including inspiratory and expiratory views, as well as prone images according to interstitial lung disease protocol were reviewed. Automatic exposure control or iterative reconstruction techniques used to reduce dose. COMPARISON: 12/05/2017 FINDINGS: 1.No significant mediastinal or hilar lymphadenopathy. No significant pleural or pericardial effusions. Coronary artery calcifications are again noted. Bilateral breast implants are again seen. Limited images of the upper abdomen show fatty infiltration of the liver and left-sided nephrolithiasis measuring 3 mm without hydronephrosis. Right hemidiaphragm elevation is chronic. 2.Small lung apical nodular opacities appear similar to prior study measuring under 5 mm in size. No pulmonary consolidations are seen. High-resolution images show mild lung basilar areas of subpleural groundglass opacities which are nonspecific. Main pulmonary artery diameter is 2.8 cm, similar to prior study. No significant air trapping noted on expiratory views. Osseous structures are intact. IMPRESSION: 1.No acute thoracic abnormalities. Apical postinflammatory changes appear stable. [id number] Procedure Note Interface, Radiology Results Incoming - 01/09/2019 7:28 PM CDT EXAMINATION: CT CHEST WO CONTRAST CLINICAL HISTORY: Pulmonary hypertension worsening dyspnea TECHNIQUE: Multiple axial images of the chest were obtained without intravenous contrast. The lack of intravenous contrast reduces the sensitivity of detecting solid organ disease and evaluating vasculature. Sagittal and coronal computerized reformatted images were also obtained. High-resolution images including inspiratory and expiratory views, as well as prone images according to interstitial lung disease protocol were reviewed. Automatic exposure control or iterative reconstruction techniques used to reduce dose. COMPARISON: 12/05/2017 FINDINGS: 1. No significant mediastinal or hilar lymphadenopathy. No significant pleural or pericardial effusions. Coronary artery calcifications are again noted. Bilateral breast implants are again seen. Limited images of the upper abdomen show fatty infiltration of the liver and left-sided nephrolithiasis measuring 3 mm without hydronephrosis. Right hemidiaphragm elevation is chronic. 2. Small lung apical nodular opacities appear similar to prior study measuring under 5 mm in size. No pulmonary consolidations are seen. High-resolution images show mild lung basilar areas of subpleural groundglass opacities which are nonspecific. Main pulmonary artery diameter is 2.8 cm, similar to prior study. No significant air trapping noted on expiratory views. Osseous structures are intact. IMPRESSION: 1. No acute thoracic abnormalities. Apical postinflammatory changes appear stable. [id number] Performing Organization Address City/State/Zipcode Phone Number [facility] [address] [place] [address] * Us duplex venous lower extremity (01/09/2019 5:21 PM CDT) Specimen Narrative Performed At [facility] Lower Extremity Venous Report [address] [place] [address] Pat.Name:BAYLEE DE LEON.ID:[id number] .Date: 01/09/2019 Refer.MD:FILOMENA ARROYO MD Exam Time: 4:55:00 PMStudy Type:LE Venous DOBAge:1940,78YSex: FEMALE Sonogrphr: [place] Vi, RVTPat. Stat.:Inpatient Room:[id number]: , CPT - 4: 95439 Echo Event ID:[id number] Order ID:[id number] Reason for Study:Bilateral leg swelling. History of shortness of breath, HTN. Procedures:Colorflow, Grayscale/2D, Pulsed wave Doppler Race:C SUMMARY: * Normal Reflux Criteria:< 0.5 seconds * Abnormal Reflux Criteria:> or equal to 0.5 seconds DUPLEX SCAN OBSERVATIONS Deep VeinsSuperficial Veins RightLeft RightLeft EIV GSV (prox) NormalNormal CFV Normal Normal (above knee) Femoral Incompetent Normal GSV (dist) Normal Not Visualized Profunda Normal Normal (below knee) Popliteal Obstructed Incompetent PT (prox) Not Visualized NormalSSV Not Visualized Not Visualized PT (dist) Normal Normal Peroneal Not Visualized Not Visualized Gastroc NormalNormal RIGHT: The popliteal vein is non-compressible with absent colorflow and Doppler signals. All other remaining visualized veins are patent.Colorflow and Doppler signals are demonstrate venous reflux> 0.5 seconds seen in the femoral vein. LEFT: There is normal compressibility with no evidence of echogenic material noted within the lumen of the visualized veins.Colorflow and Doppler signals are demonstrate venous reflux> 0.5 seconds seen in the popliteal vein. PRELIMINARY FINDINGS 1. Obstructed deep venous thrombosis of right popliteal vein. 2. 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 Result given to ARLEEN Mcgovern at 17:30 PM on 01/09/2019. PHYSICIAN INTERPRETATION Venous examination of the both lower extremities demonstrateddeep venous thrombosis of right popliteal vein. 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 MEASUREMENTS: DOPPLER General Anatomy Right General A 0Left General An 0 Right General A1.26 sLeft General An2.78 s Right General A 0 TIME Left General An 0 TIME Signed 01/10/2019 08:16 AM Jonnathan Ro MD, RPVI Procedure Note Interface, Radiology Results In - 01/10/2019 8:16 AM CDT [facility] Lower Extremity Venous Report [id number] [place] [address] Pat.Name: BAYLEE DE LEON.ID: [id number] .Date: 01/09/2019 Refer.MD: FILOMENA ARROYO MD Exam Time: 4:55:00 PM Study Type:LE Venous Age: 3 1940,78Y Sex: FEMALE Sonogrphr: [place] Vi, RVT Pat. Stat.:Inpatient Room: [id number]-[id number] Tape Vol: HV, CPT - 4: 18880 Echo Event ID:[id number] Order ID: [id number] Reason for Study:Bilateral leg swelling. History of shortness of breath, HTN. Procedures:Colorflow, Grayscale/2D, Pulsed wave Doppler Race: C SUMMARY: * Normal Reflux Criteria: < 0.5 seconds * Abnormal Reflux Criteria: > or equal to 0.5 seconds DUPLEX SCAN OBSERVATIONS Deep Veins Superficial Veins Right Left Right Left EIV GSV (prox) Normal Normal CFV Normal Normal (above knee) Femoral Incompetent Normal GSV (dist) Normal Not Visualized Profunda Normal Normal (below knee) Popliteal Obstructed Incompetent PT (prox) Not Visualized Normal SSV Not Visualized Not Visualized PT (dist) Normal Normal Peroneal Not Visualized Not Visualized Gastroc Normal Normal RIGHT: The popliteal vein is non-compressible with absent colorflow and Doppler signals. All other remaining visualized veins are patent.Colorflow and Doppler signals are demonstrate venous reflux> 0.5 seconds seen in the femoral vein. LEFT: There is normal compressibility with no evidence of echogenic material noted within the lumen of the visualized veins.Colorflow and Doppler signals are demonstrate venous reflux> 0.5 seconds seen in the popliteal vein. PRELIMINARY FINDINGS 1. Obstructed deep venous thrombosis of right popliteal vein. 2. 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 Result given to ARLEEN Mcgovern at 17:30 PM on 01/09/2019. PHYSICIAN INTERPRETATION Venous examination of the both lower extremities demonstrated deep venous thrombosis of right popliteal vein. 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 MEASUREMENTS: DOPPLER General Anatomy Right General A 0 Left General An 0 Right General A 1.26 s Left General An 2.78 s Right General A 0 TIME Left General An 0 TIME Signed 01/10/2019 08:16 AM Jonnathan Ro MD, RPVI Performing Organization Address City/State/Zipcode Phone Number [facility] [phone] [place] [address] after 04/24/2018 Insurance Type Payer Benefit Subscriber ID Effective Phone Address Plan / Dates Group PPO HUMANA MEDICARE HUMANA xxxxxxxxx [id number] MEDICARE resent PPO/PFFS/[facility] Advance Directives Patient has advance care planning documents on file. For more information, von horan contact: José Gusman [address] [place] [address]
[2019-04-25 07:35] VITALS: BP 145/80
== END | disposition home or self-care (01) ==
LOC: OR 05:10
PROVIDERS: ATTEND Physical Medicine & Rehabilitation Pain Medicine
DX: M46.1 Sacroiliitis, not elsewhere classified (principal); G57.00 Lesion of sciatic nerve, unspecified lower limb; M62.838 Other muscle spasm; M16.11 Unilateral primary osteoarthritis, right hip; M70.61 Trochanteric bursitis, right hip; J45.909 Unspecified asthma, uncomplicated; G47.33 Obstructive sleep apnea (adult) (pediatric); I10 Essential (primary) hypertension; I49.3 Ventricular premature depolarization; E66.9 Obesity, unspecified; E11.9 Type 2 diabetes mellitus without complications; K21.9 Gastro-esophageal reflux disease without esophagitis; E07.9 Disorder of thyroid, unspecified; Z01.810 Encounter for preprocedural cardiovascular examination; Z01.812 Encounter for preprocedural laboratory examination; Z79.02 Long term (current) use of antithrombotics/antiplatelets; Z79.84 Long term (current) use of oral hypoglycemic drugs; Z86.718 Personal history of other venous thrombosis and embolism; Z87.891 Personal history of nicotine dependence
CPT/HCPCS: 20552; G0260; 36415; 76000; 82948; 85025; 93005; J2001; J3301; Q9967

== ENCOUNTER → 2019-06-06 | Outpatient (CLI) | payer MEDICARE ==
[~2019-06-06] MED LIST changes: -BUPIVACAINE 0.25% 30ML SDV INJ ONE; -IOPAMIDOL 200 MG/ML 20 ML VIAL IT ONE; -LIDOCAINE HCL 1% 30ML-PF VIAL ONE; -LIDOCAINE HCL 2% LOCAL INJ 5 ML SDV VIAL INJ ONE; -PROPOFOL IV EMULSION 10 MG/ML 20 ML VIAL ONE; -TRIAMCINOLONE ACET 40 MG/ML VIAL ONE
[2019-06-06 09:58] LABS: BASOPHILS # (AUTO) 0.1 (0.0-0.1); BASOPHILS % 0.5 % (0.0-1.0); HEMATOCRIT 42.7 % (34.2-44.1); HEMOGLOBIN 14.6 g/dL (12.0-16.0); LYMPHOCYTES % 9.3 % (18.0-39.1); MEAN CORPUSCULAR HGB CONC 34.2 g/dL (31-35); MEAN CORPUSCULAR VOLUME 96.4 fL (81-99); MONOCYTES # (AUTO) 0.5 (0.2-0.8); MONOCYTES % 4.8 % (4.4-11.3); NEUTROPHILS # (AUTO) 8.8 (2.1-6.9); NEUTROPHILS % 84.5 % (38.7-80.0); PLATELET COUNT 242 x10e3/uL (140-360); RED BLOOD COUNT 4.43 x10e6/uL (3.6-5.1); RED CELL DISTRIBUTION WIDTH 12.8 % (11.7-14.4)
== END ==
LOC: LAB 05:00 → EDSTATUS 06-20 06:30
PROVIDERS: ATTEND Physical Medicine & Rehabilitation Pain Medicine
DX: M46.1 Sacroiliitis, not elsewhere classified (principal); M53.3 Sacrococcygeal disorders, not elsewhere classified; M54.16 Radiculopathy, lumbar region
CPT/HCPCS: 36415; 85025

== ENCOUNTER → 2019-08-19 | Outpatient (CLI) | payer MEDICARE ==
--- NOTE | 2019-08-19 14:56 | Diagnostic Imaging Report ---
EXAMINATION: RIBS UNILAT W/CXR INDICATION: Right rib pain COMPARISON: Chest CT of 07/18/2019 FINDINGS: LINES/TUBES:None LUNGS:The lungs are well-inflated. No focal consolidation or pulmonary edema. PLEURA:No pleural effusion or pneumothorax. MEDIASTINUM:The cardiomediastinal silhouette appears normal in size and shape. Atherosclerotic calcifications of the thoracic aorta. BONES/SOFT TISSUES:No displaced rib fracture. Cervical spine fusion hardware in place. Bilateral breast implants. ABDOMEN:No free air under the diaphragm. IMPRESSION: No displaced rib fracture. Signed by: Merrill Denise MD on 08/19/2019 2:52 PM
--- NOTE | 2019-08-19 14:58 | Diagnostic Imaging Report ---
EXAMINATION: FOREARM RIGHT 2 VIEW, ELBOW RIGHT COMPLETE INDICATION: Contusion COMPARISON: None FINDINGS: No acute fracture or dislocation. Alignment is anatomic. No substantial elbow joint effusion. Contour regularity at the distal radius, consistent with old healed fracture. IMPRESSION: No acute osseous injury of the right elbow or forearm. Signed by: Merrill Denise MD on 08/19/2019 2:55 PM
--- NOTE | 2019-08-19 15:01 | Diagnostic Imaging Report ---
EXAMINATION: FEMUR TWO VIEW MINIMUM RIGHT INDICATION: Right thigh pain COMPARISON: None FINDINGS: No acute fracture or dislocation. Status post right total hip replacement. Chronic appearing deformity of the right pubic bone is likely related to healed trauma. IMPRESSION: No acute osseous injury. Signed by: Merrill Denise MD on 08/19/2019 2:58 PM
--- NOTE | 2019-08-19 15:03 | Diagnostic Imaging Report ---
EXAMINATION: SP LUMBAR AP LATERAL 2-3VWS INDICATION: Back pain COMPARISON: None FINDINGS: No compression fracture. Vertebral body heights are well-maintained. Alignment is anatomic. Prominent multilevel degenerative changes of the lumbar spine with disc space narrowing, osteophyte formation and facet arthropathy. Dextroconvex curvature of the lower lumbar spine. Nonobstructive bowel gas pattern. No free air. Phleboliths in the pelvis. IMPRESSION: No compression fracture. 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 Signed by: Merrill Denise MD on 08/19/2019 3:00 PM
== END ==
LOC: RAD 13:26
PROVIDERS: ATTEND Family Medicine
DX: S20.221A Contusion of right back wall of thorax, initial encounter (principal); S20.211A Contusion of right front wall of thorax, initial encounter; S50.11XA Contusion of right forearm, initial encounter; M79.651 Pain in right thigh
CPT/HCPCS: 71101; 72100

== ENCOUNTER → 2019-09-12 | Day surgery (SDC) | payer MEDICARE ==
[~2019-09-12] MED LIST changes: +BUPIVACAINE 0.25% 30ML SDV INJ ONE; +CETIRIZINE HCL10 M1 PO; +DEXAMETHASONE SOD PHOS 10 MG/1 ML VIAL ONE; +FAMOTIDINE20 MG PO; +FENTANYL CITRATE/PF 100MCG/2 ML INJ ONE; +GABAPENTIN300 MG PO; +IOPAMIDOL 300 MG/ML 15ML VIAL IT ONE; +LIDOCAINE HCL 2% LOCAL INJ 5 ML SDV VIAL INJ ONE; +MIDAZOLAM HCL 2 MG/2 ML VIAL ONE; +PRESERVISION L1 EACH PO; +PROPOFOL IV EMULSION 10 MG/ML 20 ML VIAL ONE; +SIMVASTATIN20 MG PO; +TRIAMCINOLONE ACET 40 MG/ML VIAL ONE; +[UNRECOGNIZED DRUG - OTHER] PEG
[2019-09-12 07:55] VITALS: BP 120/62
--- OUTSIDE RECORDS SUMMARY | 2019-09-20 11:15 | XMS REPORT ---
[facility] Address Unknown Phone Unavailable Care Team Providers Care Salesperson [employer] Name Role Phone MAMTA COOK Unavailable Unavailable SABA CISSE Unavailable Unavailable JONAH RODRIGUEZ Unavailable Unavailable Maikol SHIRLEY Unavailable Unavailable ALEX ABARCA Unavailable Unavailable MONDAYBEN Unavailable Unavailable Payers Payer Name Policy Type Policy Number Effective Date Expiration Date Problems This patient has no known problems. Allergies, Adverse Reactions, Alerts Allergy Name Allergy Type Status Severity Reaction(s) Onset Date Inactive Date Treating Clinician Comments No Known Allergies DA Active U 2019-07-31 00:00:00 No Known Allergies DA Active U 2017-02-11 00:00:00 Medications This patient has no known medications. Results Test Description Test Time Test Comments Text Results Atomic Results Result Comments SP LUMBAR AP LATERAL 2-3VWS 2019-08-19 14:58:00 [place] [address] Patient Name: BAYLEE WILLSON MR #: [id number] : 1940 Age/Sex: 78/F Req #: [id number] Adm Physician: Ordered by: MAMTA COOK DO Report #: [id number] Location: [facility] Room/Bed: Procedure: DX/SP LUMBAR AP LATERAL 2-3VWS Exam Date: 08/19/19 Exam Time: 2 REPORT STATUS: Signed EXAMINATION: SP LUMBAR AP LATERAL 2-3VWS INDICATION: Back pain COMPARISON: None FINDINGS: No compression fracture. Vertebral body heights are well-maintained. Alignment is anatomic. Prominent multilevel degenerative changes of the lumbar spine with disc space narrowing, osteophyte formation and facet arthropathy. Dextroconvex curvature of the lower lumbar spine. Nonobstructive bowel gas pattern. No free air. Phleboliths in the pelvis. IMPRESSION: No compression fracture. 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 Signed by: Terrie Bartno MD on 08/19/2019 3:00 PM Dictated By: TERRIE BARTON MD 99 Transcribed By: ALBIN on 08/19/19 1500 COPY TO: MAMTA OCOK DO FEMUR TWO VIEW MINIMUM RIGHT 2019-08-19 14:55:00 [place] [address] Patient Name: BAYLEE WILLSON MR #: [id number] : 1940 Age/Sex: 78/F Req #: [id number] Adm Physician: Ordered by: MAMTA COOK DO Report #: [id number] Location: [facility] Room/Bed: Procedure: DX/FEMUR TWO VIEW MINIMUM RIGHT Exam Date: Exam Time: REPORT STATUS: Signed EXAMINATION: FEMUR TWO VIEW MINIMUM RIGHT INDICATI ON: Right thigh pain COMPARISON: None FINDINGS: No acute fracture or dislocation. Status post right total hip replacement. Chronic appearing deformity of the right pubic bone is likely related to healed trauma. IMPRESSION: No acute osseous injury. Signed by: Terrie Barton MD on 08/19/2019 2:58 PM Dictated By: TERRIE BARTON MD 57 Transcribed By: ALBIN on 08/19/191457 COPY TO: MAMTA COOK DO ELBOW RIGHT COMPLETE 2019-08-19 14:53:00 [place] [address] Patient Name: BAYLEE WILLSON MR #: [id number] : 1940 Age/Sex: 78/F Req #: [id number] Adm Physician: Ordered by: MAMTA COOK DO Report #: [id number] Location: [facility] Room/Bed: Procedure: [id number] DX/ELBOW RIGHT COMPLETE Exam Date: 08/19/19 Exam Time: 1352 REPORT STATUS: Signed EXAMINATION: FOREARM RIGHT 2 VIEW, ELBOW RIGHT COMPLE TE INDICATION: Contusion COMPARISON: None FINDINGS: No acute fracture or dislocation. Alignment is anatomic. No substantial elbow joint effusion. Contour regularity at the distal radius, consistent with old healed fracture. IMPRESSION: No acute osseous injury of the right elbow or forearm. Signed by: Terrie Barton MD on 08/19/2019 2:55 PM Dictated By: TERRIE BARTON MD 54 Transcribed By: ALBIN on 08/19/191454 COPY TO: MAMTA COOK DO FOREARM RIGHT 2 VIEW 2019-08-19 14:53:00 [place] [address] Patient Name: BAYLEE WILLSON MR #: [id number] : 1940 Age/Sex: 78/F Req #: [id number] Adm Physician: Ordered by: MAMTA COOK DO Report #: [id number] Location: RAD Room/Bed: Procedure: [id number] DX/FOREARM RIGHT 2 VIEW Exam Date: 08/19/19 Exam Time: 1352 REPORT STATUS: Signed EXAMINATION: FOREARM RIGHT 2 VIEW, ELBOW RIGHT COMPLE TE INDICATION: Contusion COMPARISON: None FINDINGS: No acute fracture or dislocation. Alignment is anatomic. No substantial elbow joint effusion. Contour regularity at the distal radius, consistent with old healed fracture. IMPRESSION: No acute osseous injury of the right elbow or forearm. Signed by: Terrie Barton MD on 08/19/2019 2:55 PM Dictated By: TERRIE BARTON MD 54 Transcribed By: ALBIN on 08/19/191454 COPY TO: MAMTA COOK/CXR 2019-08-19 14:47:00 [place] [address] Patient Name: BAYLEE WILLSON MR #: [id number] : 1940 Age/Sex: 78/F Req #: [id number] Adm Physician: Ordered by: MAMTA COOK DO Report #: [id number] Location: RAD Room/Bed: Procedure: [id number] DX/RIBS UNILAT W/CXR Exam Date: 08/19/19 Exam Time: 1352 REPORT STATUS: Signed EXAMINATION: RIBS UNILAT W/CXR INDICATION: Right rib pain COMPARISON: Chest CT of 07/18/2019 FINDINGS: LINES/TUBES:None LUNGS:The lungs are well-inflated. No focal consolidation or pulmonary edema. PLEURA:No pleural effusion or pneumothorax. MEDIASTINUM:The cardiomediastinal silhouette appears normal in size and shape. Atherosclerotic calcifications of the thoracic aorta. BONES/SOFT TISSUES:No displaced rib fracture. Cervical spine fusion hardware in place. Bilateral breast implants. ABDOMEN:No free air under the diaphragm. IMPRESSION: No displaced rib fracture. Signed by: Terrie Barton MD on 08/19/2019 2:52 PM Dictated By: TERRIE BARTON MD 1452 Transcribed By: ALBIN on 08/19/19 1452 COPY TO: MAMTA COOK DO GLUBED 2019-08-08 16:06:00 GLUBED (test code=GLUBED) 123 mg/dL 74-106 Performed by certified wafer fab operator at [facility] DIAG MAMM BILATERAL MARY CAD DIGITAL [id number] 17:02:20 - DIAG MAMM BILATERAL MARY CAD DIGITAL W/AUGMENTATIONBILATERAL DIGITAL DIAGNOSTIC MAMMOGRAM 3D/2D WITH CAD WITH AUGMENTATION: 08/06/2019CLINICAL: Follow up to p revious exam. Digital breast tomosynthesis was performed in addition to routine CC and MLO views. Current mammographic images were evaluated by either a B-Obvious M-Vu or a Taigen ImageChecker CAD (computer aided detection system). Compari son is made to exams dated 07/23/2018 mammogram, 07/13/2017 mammogram, and 06/28 mammogram - [facility]. There are scattered fibroglandula r tissues in both breasts. Bilateral implants are in place. No suspicious mass , architectural distortion, malignant type calcification, or lymph node abnormal ity detected. INCOMPLETE: ADDITIONAL IMAGING EVALUATION NEEDEDBilateral ultraso und pending for additional evaluation. There is no mammographic evidence of mal ignancy. Resume annual screening mammography in one year. - BREAST ULTRASOUND B ILATERALULTRASOUND OF BOTH BREASTS AND BOTH AXILLA: 08/06/2019Comparison is made to exams dated 07/23/2018 mammogram, 07/13/2017 mammogram, and 06/28/2016 mammog deric - [facility] Real-time ultrasound of both breasts and both axilla and clinical breast exam were performed. No abnormalities were seen son ographically in either breast or either axilla. Bilateral implants are intact. Clinical breast exam was unremarkable. IMPRESSION: BENIGN There is no sonograph ic evidence of malignancy. Patient has been informed that she should have scree [facility] mammogram and supplemental ultrasound in 1 year.Lisa Maciel M.D. dm/:08/06/2019 17:02:20 Rack Cleaner: Britt[facility] Ban[facility] , [facility]: BIRADS 1-2 Combo FU Letter Mammogram BI-RADS: 0 I ncomplete: Additional Imaging Evaluation Needed Ultrasound BI-RADS: 2 Benign BREAST ULTRASOUND [id number] 17:02:20 - DIAG MAMM BILATERAL MARY CAD DIGITAL W/AUGMENTATIONBILATERAL DIGITAL DIAGNOSTIC MAMMOGRAM 3D/2D WITH CAD WITH AUGMENTATION: 08/06/2019CLINICAL: Follow up to previous exam. Digital breast tomosynthesis was performed in addition to routine CC and MLO views. Current mammographic images were evaluated by either a B-Obvious M-Vu or a Taigen ImageChecker CAD (computer aided detection system). Comparison is made to exams dated 07/23/2018 mammogram, 07/13/2017 mammogram, and 06/28/2016 mammogram - [facility] There are scattered fibroglandular tissues in both breasts. Bilateral implants are in place. No suspicious mass, architectural distortion, malignant type calcification, or lymph node abnormality detected. INCOMPLETE: ADDITIONAL IMAGING EVALUATION NEEDEDBilateral ultrasound pending for additional evaluation. There is no mammographic evidence of malignancy. Resume annual screening mammography in one year. - BREAST ULTRASOUND B ILATERALULTRASOUND OF BOTH BREASTS AND BOTH AXILLA: 08/06/2019Comparison is made to exams dated 07/23/2018 mammogram, 07/13/2017 mammogram, and 06/28/2016 mammog deric - [facility]. Real-time ultrasound of both breasts and both axilla and clinical breast exam were performed. No abnormalities were seen son ographically in either breast or either axilla. Bilateral implants are intact. Clinical breast exam was unremarkable. IMPRESSION: BENIGN There is no sonograph ic evidence of malignancy. Patient has been informed that she should have scree [facility] mammogram and supplemental ultrasound in 1 year.Lisa Maciel M.D. dm/:08/06/2019 17:02:20 Rack Cleaner: Brittanie Banuelos [facility] sent: BIRADS 1-2 Combo FU Letter Mammogram BI-RADS: 0 I ncomplete: Additional Imaging Evaluation Needed Ultrasound BI-RADS: 2 Benign BASIC METABOLIC [id number] 10:28:00* Test Item Value Reference Range Comments SODIUM (test code=NA) 142 mmol/L 136-145 POTASSIUM (test code=K) 4.4 mmol/L 3.5-5.1 CHLORIDE (test code=CL) 106.0 mmol/L 98-107 CARBON DIOXIDE (test code=CO2) 30.0 mmol/L 21-32 ANION GAP (test code=GAP) 10.4 10-20 GLUCOSE (test code=GLU) 149 mg/dL 74-106 BLOOD UREA NITROGEN (test code=BUN) 15 mg/dL 7-18 GLOMERULAR FILTRATION RATE (test code=GFR) > 60 mL/min >=60 Estimated GFR by using Modified MDRD formula.Chronic kidney disease is defined as either kidney damageor GFR <60 mL/min/1.73 m2 for >3 months. CREATININE (test code=CREAT) 0.90 mg/dL 0.55-1.02 Note change in reference range due to change in reagent. BUN/CREATININE RATIO (test code=BUN/CREA) 16.7 10-20 CALCIUM (test code=CA) 10.1 mg/dL 8.5-10.1 BASIC METABOLIC [id number] 10:22:00* Test Item Value Reference Range Comments SODIUM (test code=NA) 142 mmol/L 136-145 POTASSIUM (test code=K) 4.4 mmol/L 3.5-5.1 CHLORIDE (test code=CL) 106.0 mmol/L 98-107 CARBON DIOXIDE (test code=CO2) mmol/L 21-32 ANION GAP (test code=GAP) 10-20 GLUCOSE (test code=GLU) mg/dL 74-106 BLOOD UREA NITROGEN (test code=BUN) mg/dL 7-18 GLOMERULAR FILTRATION RATE (test code=GFR) mL/min >=60 CREATININE (test code=CREAT) mg/dL 0.55-1.02 BUN/CREATININE RATIO (test code=BUN/CREA) 10-20 CALCIUM (test code=CA) mg/dL 8.5-10.1 CBC W/AUTO [id number] 09:55:00* Test Item Value Reference Range Comments WHITE BLOOD CELL (test code=WBC) 6.0 K/mm3 4.5-12.5 RED BLOOD CELL (test code=RBC) 4.22 mill/mm3 3.7-5.2 HEMOGLOBIN (test code=HGB) 13.7 gram/dL 11.5-15.5 HEMATOCRIT (test code=HCT) 41.7 % 36.0-46.0 MEAN CELL VOLUME (test code=MCV) 98.8 fL 80-98 MEAN CELL HGB (test code=MCH) 32.5 picogram 27.0-33.0 MEAN CELL HGB CONCETRATION (test code=MCHC) 32.9 gram/dL 33.0-36.0 RED CELL DISTRIBUTION WIDTH (test code=RDW) 13.2 % 11.6-16.2 RED CELL DISTRIBUTION WIDTH SD (test code=RDW-SD) 47.4 fL 37.0-51.0 PLATELET COUNT (test code=PLT) 203 K/mm3 150-450 MEAN PLATELET VOLUME (test code=MPV) 8.4 fL 6.7-11.0 NEUTROPHIL % (test code=NT%) 61.4 % 39.0-69.0 IMMATURE GRANULOCYTE % (test code=IG%) 0.8 % 0.0-5.0 LYMPHOCYTE % (test code=LY%) 19.6 % 25.0-55.0 MONOCYTE % (test code=MO%) 11.3 % 0.0-10.0 EOSINOPHIL % (test code=EO%) 5.1 % 0.0-5.0 BASOPHIL % (test code=BA%) 1.8 % 0.0-1.0 NUCLEATED RBC % (test code=NRBC%) 0.0 % 0-0 NEUTROPHIL # (test code=NT#) 3.70 K/mm3 1.8-7.7 IMMATURE GRANULOCYTE # (test code=IG#) 0.05 x10 3/uL 0-0.03 LYMPHOCYTE # (test code=LY#) 1.18 K/mm3 1.0-5.0 MONOCYTE # (test code=MO#) 0.68 K/mm3 0-0.8 EOSINOPHIL # (test code=EO#) 0.31 K/mm3 0.0-0.5 BASOPHIL # (test code=BA#) 0.11 K/mm3 0.0-0.2 NUCLEATED RBC # (test code=NRBC#) 0.00 K/mm3 0.0-0.1 CBC W/AUTO [id number] 09:54:00* Test Item Value Reference Range Comments WHITE BLOOD CELL (test code=WBC) K/mm3 4.5-12.5 RED BLOOD CELL (test code=RBC) mill/mm3 3.7-5.2 HEMOGLOBIN (test code=HGB) 13.7 gram/dL 11.5-15.5 HEMATOCRIT (test code=HCT) 41.7 % 36.0-46.0 MEAN CELL VOLUME (test code=MCV) fL 80-98 MEAN CELL HGB (test code=MCH) picogram 27.0-33.0 MEAN CELL HGB CONCETRATION (test code=MCHC) gram/dL 33.0-36.0 RED CELL DISTRIBUTION WIDTH (test code=RDW) % 11.6-16.2 RED CELL DISTRIBUTION WIDTH SD (test code=RDW-SD) fL 37.0-51.0 PLATELET COUNT (test code=PLT) K/mm3 150-450 MEAN PLATELET VOLUME (test code=MPV) fL 6.7-11.0 NEUTROPHIL % (test code=NT%) % 39.0-69.0 IMMATURE GRANULOCYTE % (test code=IG%) % 0.0-5.0 LYMPHOCYTE % (test code=LY%) % 25.0-55.0 MONOCYTE % (test code=MO%) % 0.0-10.0 EOSINOPHIL % (test code=EO%) % 0.0-5.0 BASOPHIL % (test code=BA%) % 0.0-1.0 NEUTROPHIL # (test code=NT#) K/mm3 1.8-7.7 LYMPHOCYTE # (test code=LY#) K/mm3 1.0-5.0 MONOCYTE # (test code=MO#) K/mm3 0-0.8 EOSINOPHIL # (test code=EO#) K/mm3 0.0-0.5 BASOPHIL # (test code=BA#) K/mm3 0.0-0.2 CT CHEST [id number] 09:12:00 [place] [address] Patient Name: BAYLEE WILLSON MR #: [id number] : 1940 Age/Sex: 78/F Req #: [id number] Adm Physician: Ordered by: SABA CISSE MD Report #: [id number] Location: CT Room/Bed: Procedure: [id number] CT /CT CHEST WO Exam Date: 07/18/19 Exam Time: 804 REPORT STATUS: Signed EXAM: CT Chest WITHOUT intravenous contrast 07/18/2019 7:50 AM INDICATION: Lung nodule fol low-up, cough COMPARISON: Chest CT of 12/05/2018 TECHNIQUE: Chest was scanne d utilizing a multidetector helical scanner from the lung apex through the lev el of the adrenal glands without administration of IV contrast. Coronal and sa gittal reformations were obtained. Routine protocol was performed. IV CON TRAST: None RADIATION DOSE: Total DLP: 504.0 mGy*cm. Dose modulation, iterativ e reconstruction, and/or weight based adjustment of the mA/kV was utilized to reduce the radiation dose to as low as reasonably achievable. COMPLICATIONS: None FINDINGS: LINES/ TUBES: None. LUNGS AND AIRWAYS: The cent ral airways are patent. No focal consolidation or pulmonary edema. The previo usly seen new left upper lobe clustered nodules have resolved. All other previ ously described pulmonary nodules measuring up to 5 mm on the right (series 3 image 19 and 3 mm on the left (series 3 image 20) appears stable dating back t o at least 12/05/2017. No new suspicious nodules. PLEURA: No pleural effusion or pneumothorax. HEART AND MEDIASTINUM: The thyroid gland is normal. No m ediastinal, hilar or axillary lymphadenopathy. The heart is normal in size.. There is no pericardial effusion. Scattered atherosclerotic calcifications of the coronary arteries and aorta. UPPER ABDOMEN: Limited noncontrast imag es of the upper abdomen demonstrate no focal abnormality of the partially visu alized liver, gallbladder, spleen, adrenals. The pancreas and kidneys are not visualized. BONES: Partially visualized cervical spine fusion hardware. No acute osseous injury. No suspicious lytic or blastic lesions. SOFT TISSU ES: Bilateral breast implants. IMPRESSION: Interval resolution of previo usly seen left upper lobe clustered nodules. All other previously described pu lmonary nodules measuring up to 5 mm appear stable dating back to at least 12/05. No further imaging follow-up is necessary for these nodules. No ne w suspicious pulmonary nodules. Scattered atherosclerotic calcifications in cluding of the coronary arteries. Signed by: Terrie Barton MD on 07/18/2019 9 :54 AM Dictated By: TERRIE BARTON MD 3 Transcribed By: ALBIN on 07/18/19953 COPY TO: SABA TARIQ MD MRI SPINE CERVICAL [id number] 18:05:00 [place] [address] Patient Name: BAYLEE WILLSON MR #: [id number] : 1940 Age/Sex: 78/F Req #: [id number] Adm Physician: Ordered by: MAMTA COOK DO Report #: [id number] Location: MRI Room/Bed: Procedure: [id number] MRI/ MRI SPINE CERVICAL WO Exam Date: Exam Time: REPORT STATUS: Signed History: Head and neck pain, numbness in fingers. Comparison studies: None Technique: Sagittal T1, T2 and IR, axial T2 and axial gradient echo Intravenous contrast : None Findings: Alignment: Straightening of the cervical lordosis mi nimal grade 1 anterolisthesis of C4 over C5. No scoliosis Cervicomedullary j unction: No abnormalities. Patent foramen magnum. Soft tissues: No T2 hyperin tense inflammatory changes. Spinal cord: Normal in size and signal from the fo ramen magnum through T4. Anterior and intervertebral fusion with plate and scr ews from C5 through C7 Vertebrae: Normal in height and signal intensity . No fractures, infection or neoplasm. Degenerative changes: C2-C3: Disc degeneration with loss of T2 signal. Right uncinate processes and facet hypertrophy results in mild right foraminal narrowing without significant canal stenosis. C3-C4: Disc degeneration with loss of T2 signal. Bilateral u ncinate process and right facet hypertrophy results in moderate right foramina l narrowing without significant canal stenosis. C4-C5: Disc degeneratio n with loss of T2 signal and decreased intervertebral space. Bilateral uncinat e hypertrophy and facet hypertrophy results in no significant canal stenosis a nd mild bilateral foraminal narrowing. C5-C6: Bilateral uncinate process and facet hypertrophy results in mild right foraminal narrowing without signif icant canal stenosis. C6-C7: Bilateral uncinate process hypertrophy and f acet hypertrophy without significant canal stenosis and mild bilateral foramin al narrowing Degenerative C7-T1: Patent canal and foramina Mild mucosal thickening at the sphenoid sinus partially visualized. IMPRESSION: 1. Anterior fusion from C5 through C7 without complication. 2. Mod erate right degenerative foraminal narrowing at C3-4. Mild multilevel degenera tive foraminal narrowing as described above. No significant canal stenosis. Signed by: DR Doug Barber M.D. on 01/25/2019 6:13 PM Dictated By: DOUG GARCIA MD 12 COPY TO: AJIT COOK DO CT CHEST [id number] 05:11:00 [place] [address] Patient Name: BAYLEE WILLSON MR #: [id number] : 1940 Age/Sex: 77/F Req #: [id number] Adm Physician: Ordered by: SABA CISSE MD Report #: [id number] Location: CT Room/Bed: Procedure: [id number] CT /CT CHEST WO Exam Date: 12/05/18 Exam Time: 1546 REPORT STATUS: Signed EXAM: CT Chest WITHOUT contrast INDICATION: Pulmonary nodule follow-up. COMPARISON: PE chest CT 10/03/2018 TECHNIQUE: Chest was scanned utilizing a multidetector helical scanner from the lung apex through the level of the adrenal glands wit hout administration of IV contrast. Absence of intravenous contrast decreases sensitivity for detection of lymphadenopathy and vascular pathology. Coronal a nd sagittal reformations were obtained. Routine protocol was performed. IV CONTRAST: None COMPLICATIONS: None RADIATION DOSE: Total DLP: 465.74 mGy*cm Estimated effective dose: (DLP x 0.014 x size factor) mSv Dose modulation, iterative reconstruction, and/or weight based adju stment of the mA/kV was utilized to reduce the radiation dose to as low as lobo sonably achievable. FINDINGS: LINES/ TUBES: None. L UNGS AND AIRWAYS: New pulmonary nodules, including (series 3): * Left upp er lobe clustered nodules measuring up to 5 mm (image 38) Stable pulmonary nodules, including (series 3): * Right upper lobe 5 mm nodule (image 16) * Right upper lobe 3 mm nodule (image 26) * Left upper lobe 4 mm nodule (image 15) * Left upper lobe 2 mm nodule (image 21) Less conspicuous nodules and opacities, including (series 3): * Right upper lobe 7 mm nodular opacity (image 36), previously 1.3 cm and patchy groundglass appearing. * Previous left upper lobe patchy groundglass opacities, currently resolved * Previously noted right upper lobe 5 mm subpleural nodule, currently resolved No conso lidations. Bilateral lower lobe atelectasis. PLEURA: The pleural spaces are clear. HEART AND MEDIASTINUM: The thyroid gland is normal. No mediastinal, hilar or axillary lymphadenopathy. The heart is normal in size.. There is no pericardial effusion. Main pulmonary artery measures 2.9 cm. Ascending aorta measures 3.6 cm. Scattered aortic and coronary artery calcifications. UPPER ABDOMEN: Cholelithiasis. Eventration of the right hemidiaphragm. BONES: There are degenerative changes in the thoracic spine. Incompletely visualized anterior cervical fusion hardware. SOFT TISSUES: Peripherally calcified b reast implants. Left pectoralis minor incompletely visualized intramuscular li justin, visualized portion measuring 3.1 x 0.9 cm. Stable 1 cm nodule in the med ial upper right breast (series 2 image 19). IMPRESSION: New clustered l eft upper lobe pulmonary nodules, likely infectious or inflammatory. Resolut ion and decrease of some of the previous patchy and groundglass opacities, als o suggesting infectious or inflammatory etiology. Remaining stable nodules as above. Recommend follow-up per Fleischner Society 2017 guidelines. Stable medial upper right breast 1 cm nodule. Recommend correlation with prior mammo gram. If future mammogram not desired, consider attention on follow-up chest C T. Cholelithiasis. Signed by: DR. Orville Olea MD on 12/06/2018 5:3 2 AM Dictated By: ORVILLE OLEA MD 1 Transcribed By: ALBIN on 12/06/18531 COPY TO: SABA CISSE MD CT CHEST [id number] 10:23:00 [facility] [address] [place] [address] Patient Name: BAYLEE WILLSON MR #: [id number] : 1940 Age/Sex: 77/F Req #: [id number] Adm Physician: Ordered by: JONAH RODRIGUEZ MD Report #: [id number] Location: CT Room/Bed: Procedure: [id number] CT/CT CHEST W Exam Date: Exam Time: REPORT STATUS: Signed EXAM: CT Chest WITH contrast INDICATION: Evaluate for pulmonary embolism. COMPARISON: None TE CHNIQUE: Chest was scanned utilizing a multidetector helical scanner from the lung apex through the level of the diaphragm after administration of IV contra st. Thin section reconstructions were obtained with special concentration on t he pulmonary arteries. Coronal and sagittal reformations were obtained. Pulmon stephanie embolism protocol was performed. IV CONTRAST: 100 cc of Isovu e 370 RADIATION DOSE: Total DLP: 567.8 mGy*cm COMPLICA TIONS: None FINDINGS: LINES/ TUBES: None. PULMONARY ARTERIES: Main p ulmonary artery measures 2.7 cm in diameter. Mildly limited evaluation seconda ry to motion artifact. The study is satisfactory for evaluation of pulmonary e mbolism to the level of the segmental pulmonary arteries. There is distal loba r and segmental PE in the right middle lobe pulmonary arteries (series 2, imag e 53). LUNGS AND AIRWAYS: The central airways are patent. There is a 3 mm solid pulmonary nodule in the left upper lobe on image 21 and a 5 mm subpleur al nodule in the right upper lobe on image 20. There is a 5 mm subpleural righ t upper lobe nodule on image 29 and a 3 mm nodule in the right upper lobe on image 27. Patchy dependent atelectatic changes. Patchy groundglass opacity in the left upper lobe on images 34 and 42, likely infectious or inflammatory. M otion artifact at the lung bases limits evaluation for lung nodule. PLEURA: The pleural spaces are clear. HEART AND MEDIASTINUM: The thyroid gland is normal. No mediastinal, hilar or axillary lymphadenopathy. No cardiomegaly or pericardial effusion. Coronary and aortic atherosclerotic calcifications. UPPER ABDOMEN: Limited non-contrast views of the upper abdomen demonstrate no abnormality within the visualized liver, spleen, adrenal glands, or pancreas. There is 2 mm nonobstructing left midpole renal stone. BONES/SOFT TISSUES: Bilateral breast implants. No suspicious lytic or blastic lesions. IM PRESSION: Somewhat limited study secondary to contrast bolus and motion artif act. Study is positive for pulmonary embolism involving the distal lobar and s egmental right middle lobe pulmonary arteries. No CT evidence of right heart s train or pulmonary infarct. The above findings were discussed with Dr. Nick keller, covering physician for Dr. Jonah Rodriguez on 10/03/2018 at 1045 AM. Mc ateral solid pulmonary nodules measuring up to 5 mm. In a patient at low risk for malignancy, no further follow-up is suggested. If the patient has a smokin g history or other risk factor for malignancy, an optional chest CT in 12 [facility] hs may be considered. Ground glass patchy opacity in the left upper lobe, l ikely infectious or inflammatory. Signed by: Dr. Asha Carolina MD on 10/03/19 10:54 AM Dictated By: ASHA CAROLINA MD 1054 Transcribed By: ALBIN on 10/03/18 1054 COPY TO: JONAH RODRIGUEZ MD MRI HIP RIGHT [id number] 15:42:00 [place] [address] Patient Name: BAYLEE WILLSON MR #: [id number] : 1940 Age/Sex: 77/F Req #: [id number] Adm Physician: Ordered by: RILEY SHIRLEY MD Report #: [id number] Location: MRI Ro om/Bed: Procedure: [id number] MRI/MRI HIP RIGHT WO Ex am Date: Exam Time: REPORT STATUS: Signed MRI of the right hip without contrast. History: Hip pain. Decreased ran ge of motion. Technique: Multiplanar multisequence MRI of the hip without c ontrast Findings: There is abnormal bone marrow edema in the right femoral head with a low signal intensity line through the superior femoral head exten ding to the cortex. This is best seen on series 6 image 12 through 14. There i s apparent minimal depression of the anterior femoral head cortex best seen on sagittal series 7 image 29. Additionally, there is abnormal bone marrow edema along the superior lateral acetabulum. Several small subchondral cysts are seen in the region. There is a right hip joint effusion and synovitis whic h is thought to be reactive. There is degeneration and fraying of the labrum. The remainder of the visualized ligaments and tendons about the hip are intact . Scattered degenerative changes are seen about the visualized lower lumbar spine and pelvis. A similar appearing low signal intensity line is seen through the left femoral head. This is less pronounced when compared with the right. The visualized neurovascular bundles are intact. There is mild diffuse muscle atrophy. No ligamentous or tendon tear is seen. 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 Incidental no te is made of less severe changes in the left femoral head. Signed by: Temo Pop M.D. on 06/19/2018 3:54 PM Dictated By: NARAYAN Plascencia 1554 Transcribed B y: ALBIN on 06/19/18 1555 COPY TO: RILEY SHIRLEY MD CT ABDOMEN/PELVIS [id number] 11:13:00 [place] [address] Patient Name: BAYLEE WILLSON MR #: [id number] : 1940 Age/Sex: 77/F Req #: [id number] Adm Physician: Ordered by: ALEX ABARCA MD Report #: [id number] Location: CT Room/Bed: Procedure: [id number] CT/CT ABDOMEN/PELVIS W Exam Date : 04/13/18 Exam Time: 944 REPORT STATUS: Jennifer d PROCEDURE: CT ABDOMEN AND PELVIS WITH CONTRAST TECHNIQUE: The abdo men and pelvis were scanned utilizing a multidetector helical scanner from th e diaphragm to the lesser trochanter after the IV administration of 100 cc of Isovue 370 and the oral administration of Gastrografin mixed with water. Co ender and sagittal multiplanar reformations were obtained. DLP: 817.35 mGy-cm COMPARISON: CT chest dated 12/05/2017 INDICATIONS: LEFT LOW ER ABDOMINAL PAIN, DIVERTICULITIS FINDINGS: LOWER THORAX: There are bila teral calcified breast implants. HEPATOBILIARY: No focal hepatic lesions. Decreased CT attenuation secondary to hepatic steatosis. No biliary ductal d ilatation. Previously visualized small calcified gallstone not seen on this s tudy. SPLEEN: No splenomegaly. PANCREAS: No focal masses or ductal dilatatio n. ADRENALS: No adrenal nodules. KIDNEYS/URETERS: No hydronephrosis or s olid mass lesions. There is a 4-5 mm left upper pole nonobstructing renal sto ne. PELVIC ORGANS/BLADDER: Unremarkable. PERITONEUM / RETROPERITONEUM: N o free air or fluid. LYMPH NODES: No lymphadenopathy. VESSELS: The mild athe rosclerotic vascular calcification. GI TRACT: No distention or wall thicke siomara. Small hiatal hernia. No evidence of diverticulitis. BONES AND SOF T TISSUES: Degenerative changes of the spine with almost complete fusion at L 4-L5 with large anterior overhanging osteophyte. IMPRESSION: 1. Nono bstructing left upper pole renal stone. 2. Diffuse hepatic steatosis. 3. Sma ll hiatal hernia. David Chen D.O. Dictated by: David Chen D.O. on 04/13/2018 at 11:13 Electronically approved by: David Chen D.O. on 04/13/2018 at 11:13 Dictated By: DAVID CHEN DO Elec tronically Signed By: DAVID CHEN DO on 04/13/18 1113 Transcribed By: PHILIP tinoco 04/13/18 1113 COPY TO: ALEX ABARCA MD MRI BRAIN WO [place] [address] Patient Name: BAYLEE WILLSON MR #: [id number] : 1940 Age/Sex: 77/F Req #: [id number] Adm Physician: Ordered by: BEN YOUNG MD Report #: [id number] Location: MRI Room/Bed: Procedure: [id number] MRI/MRI BRAIN WO Exam Date: Exam Time: REPORT STATUS: Signed History: Headaches, new onset Comparison studies: None Technique: Sagittal T2; axial DWI, FLAIR, MPGR, T1, Coronal FLAIR. Intravenous contrast: None Fi ndings: Scalp: Normal in signal . No masses . Bone marrow: Normal in sign al intensity. Extra-axial: No masses, no fluid collections. Brain s ulci: Mildly prominent. Ventricles: Mildly prominent . No hydrocephalus . Parenchyma: Scattered small T2/flair hyperintensities of the periventricular and deep white matter No masses, hemorrhage, acute or chronic vascular insul ts. Suprasellar region: No abnormalities. Craniocervical junction: No abn ormalities. Patent foramen magnum. No Chiari one malformation. Vessels: No rmal flow-voids in the arteries and sinuses. IMPRESSION: 1. No acu te intracranial abnormalities. 2. Mild chronic microvascular ischemic akhtar ges of the white matter and mild diffuse volume loss Signed by: DR Duog Barber M.D. on 02/08/2018 3:55 PM Dictated By: DOUG GARCIA MD Transcrib ed By: ALBIN on 02/08/181554 COPY TO: MONDAYBEN MD CT CHEST WO [place] [address] Patient Name: BAYLEE WILLSON MR #: [id number] : 1940 Age/Sex: 76/F Req #: [id number] Adm Physician: Ordered by: SABA CISSE MD Report #: [id number] Location: CT Room/Bed: Procedure: [id number] CT/CT CHEST WO Exam Date: Exam Time: 1250 REPORT STATUS: Signed PROCEDURE: CT CHEST WITHOUT CONTRAST CT scan of the chest WITHOUT intravenous contrast, using standard protocol. TECHNIQUE: The chest was scanned utilizing a multidetector helical scanner from the apex to the level of the a drenal glands. No IV contrast was administered per physician's request. Jared nal and sagittal multiplanar reformations were obtained. COMPARISON: [facility], CT, CT C-SPINE WO, 12/20/2016, 13:58. [facility], CT, CT CHEST WO, 12/23/2014, 10:47. [facility], CT, CT CHEST W/CONTRAST, 02/10/2011, 10:04. Patients [facility], CT, CT CHEST WO , 12/22/2015, 14:20. Patients [facility], CT, CT CHEST WO, 03/15/2016, 13: 27. INDICATIONS: DYSPNEA FINDINGS: Lines/tubes: None. Lungs and Airways: Stable 4 mm nodular density in the medial right apex (ser ies 3, image 12). 4 mm nodular density in the medial left apex (series 3, imag e 12). No other nodular densities. No masses or consolidation. Airways are c lear, without endobronchial lesions. Pleura: The pleural spaces are clear. Heart and mediastinum: Thyroid is unremarkable. Heart size is normal. No pericardial effusion. Atherosclerotic calcification of the coronary arteri es and thoracic aortic arch. Aorta is non-aneurysmal. Main pulmonary artery i s in the upper limit of normal, measuring 3 x 1 cm. Lymph nodes: No medias tinal, hilar, or axillary adenopathy. Abdomen: Limited views of the upper abdo men show no abnormality within the visualized spleen, pancreas, or kidneys. D iffuse hepatic steatosis. No focal lesions. 5 mm calcified gallstone. The adr enal glands are normal. Bones: No aggressive lytic lesions. Degenerativ e disc changes in the thoracic spine. Anterior fusion hardware in the lower c ervical spine is stable. Stable 6 mm nonaggressive appearing lucent lesion in the T4 vertebral body (series 2 image 18). Soft tissues are grossly unrem arkable. Bilateral peripherally calcified breast implants. IMPRESSION: 1. Stable 4 mm nodular density in the medial right apex since 2016. 2. New 4 mm nodular density in the left apex. Recommend followup low dose nodule pr otocol noncontrast chest CT in 12 months to document stability. 3. Diffuse hepatic steatosis. Newton Alejandro M.D. Dictated by: Stuart Alejandro M.D. on 12/05/2017 at 19:15 Electronically approved by: Newton Alejandro M.D. on 12/05/2017 at 19:15 Dictated By: JYOTI ALEJANDRO MD 14 T ranscribed By: PHILIP on 12/05/171914 COPY TO: SABA CISSE MD MRI SPINE LUMBAR WO [facility] [address] [place] [address] Patient Name: BAYLEE WILLSON MR #: [id number] : 1940 Age/Sex: 76/F Req #: [id number] Adm Physician: Ordered by: RILEY SHIRLEY MD Report #: [id number] Location: MRI Room/Bed: Procedure: [id number] MRI/MRI SPINE LUMBAR WO Exam Date: 06/14/17 Exam Time: 0804 REPORT STA TUS: Signed EXAMINATION: MRI of the lumbar spine without contrast HIST ORY: Low back pain radiating to the right with numbness, sacroiliitis COMPARIS ON: Lumbar spine MRI and 04/30/2013 TECHNIQUE: Sagittal T1, T2, STIR; axial T2 and proton density. FINDINGS: It is assumed that there are 5 lumb ar vertebrae. Curvature/Alignment: Normal lordosis. Persistent grade 1 deg enerative anterolisthesis at L4-5 and L5-S1. Dextroscoliosis with apex at L3-L 4 with left distal compensatory curve. Vertebrae: No evidence of recent fracture, infection, or neoplasm. Chronic endplate degenerative changes from L3 to L5 Conus: Normal, terminating at L1-L2 Cauda equina: Unremarka ble. Lower thoracic: Unremarkable. Paraspinal soft tissues: Severe atrophy of the paraspinal muscles Degenerative changes: L1-L2: U nremarkable. L2-L3: Asymmetric to the right disc bulge and 2 mm left joseph barticular disc protrusion, bilateral facet arthrosis. Mild right foraminal st enoses, no significant canal stenosis L3-L4: Decreased disc height an d T2 signal intensity, asymmetric to the right disc osteophyte and bilateral f acet arthrosis. Mild canal and left foraminal stenosis. Moderate right foramin al stenoses L4-L5: Decreased disc height, asymmetric to the left disc o steophyte, ligamenta flava thickening and advanced facet arthrosis. Moderately severe spinal canal and left foraminal stenoses. L5-S1: Diffuse disc bulge and advanced facet arthrosis. Moderate spinal canal and mild left gianluca inal stenosis. Particularly there is effacement of the [...] L4-L5. 3. Moderately severe degenerative spinal canal st enosis at L4-5 and mild at L3-4 and L5-S1. Signed by: Bartolome Álvarez on 06/14/2017 10:54 AM Dictated By: KYRIE ORTIZ MD Electronically Sign ed By: KYRIE ORTIZ MD on 06/14/17 1058 Transcribed By: ALBIN on 06/14/17 1057 COPY TO: RILEY SHIRLEY MD
== END | disposition home or self-care (01) ==
LOC: OR 05:51
PROVIDERS: ATTEND Physical Medicine & Rehabilitation Pain Medicine
DX: M46.1 Sacroiliitis, not elsewhere classified (principal); M53.3 Sacrococcygeal disorders, not elsewhere classified; M54.17 Radiculopathy, lumbosacral region; G57.03 Lesion of sciatic nerve, bilateral lower limbs; Z01.810 Encounter for preprocedural cardiovascular examination; E11.9 Type 2 diabetes mellitus without complications; K21.9 Gastro-esophageal reflux disease without esophagitis; I10 Essential (primary) hypertension; E78.00 Pure hypercholesterolemia, unspecified; G47.33 Obstructive sleep apnea (adult) (pediatric); J45.909 Unspecified asthma, uncomplicated; Z79.84 Long term (current) use of oral hypoglycemic drugs
CPT/HCPCS: 27096; 36415; 62327; 77003; 82948; 93005; J1100; J2001; J2250; J2704; J3010; J3301; Q9967; 76000

== ENCOUNTER → 2019-11-21 | Day surgery (SDC) | payer MEDICARE, OTHER ==
[2019-11-12 15:25] LABS: BASOPHILS # (AUTO) 0.1 (0.0-0.1); BASOPHILS % 0.9 % (0.0-1.0); EOSINOPHILS # (AUTO) 0.4 (0.0-0.4); EOSINOPHILS % 4.5 % (0.0-6.0); HEMATOCRIT 42.3 % (34.2-44.1); HEMOGLOBIN 14.8 g/dL (12.0-16.0); LYMPHOCYTES # (AUTO) 1.6 (1.0-3.2); MEAN CORPUSCULAR HEMOGLOBIN 33.3 pg (28-32); MEAN CORPUSCULAR VOLUME 95.3 fL (81-99); MONOCYTES # (AUTO) 0.8 (0.2-0.8); MONOCYTES % 10.5 % (4.4-11.3); NEUTROPHILS # (AUTO) 5.1 (2.1-6.9); NEUTROPHILS % 63.5 % (38.7-80.0); PLATELET COUNT 247 x10e3/uL (140-360); RED BLOOD COUNT 4.44 x10e6/uL (3.6-5.1); RED CELL DISTRIBUTION WIDTH 12.7 % (11.7-14.4)
[~2019-11-21] MED LIST changes: -BUPIVACAINE 0.25% 30ML SDV INJ ONE; -DEXAMETHASONE SOD PHOS 10 MG/1 ML VIAL ONE; -FENTANYL CITRATE/PF 100MCG/2 ML INJ ONE; +IOPAMIDOL 200 MG/ML 20 ML VIAL IT ONE; -IOPAMIDOL 300 MG/ML 15ML VIAL IT ONE; +IPRATROPIU0.2 MG/1 M; +LIDOCAINE HCL 1% 30ML-PF VIAL ONE; +LUNESTA2 MG PO; -MIDAZOLAM HCL 2 MG/2 ML VIAL ONE; -[UNRECOGNIZED DRUG - OTHER] PEG; +[UNRECOGNIZED DRUG - OTHER] PO
[2019-11-21 07:00] VITALS: BP 143/78
== END | disposition home or self-care (01) ==
LOC: OR 05:27
PROVIDERS: ATTEND Physical Medicine & Rehabilitation Pain Medicine
DX: M46.1 Sacroiliitis, not elsewhere classified (principal); M53.3 Sacrococcygeal disorders, not elsewhere classified; M54.17 Radiculopathy, lumbosacral region; M70.61 Trochanteric bursitis, right hip; Z98.1 Arthrodesis status; J45.909 Unspecified asthma, uncomplicated; I10 Essential (primary) hypertension; E11.9 Type 2 diabetes mellitus without complications; Z79.02 Long term (current) use of antithrombotics/antiplatelets; Z79.84 Long term (current) use of oral hypoglycemic drugs; Z96.641 Presence of right artificial hip joint
CPT/HCPCS: 36415 ×2; 76000; 82948; 85025; G0260; J2001 ×2; J2704; J3301; Q9967

== ENCOUNTER → 2021-10-14 | Day surgery (SDC) | payer MEDICARE, OTHER ==
[2021-10-12 10:51] LABS: BASOPHILS # (AUTO) 0.1 (0.0-0.1); BASOPHILS % 1.2 % (0.0-1.0); EOSINOPHILS # (AUTO) 0.4 (0.0-0.4); EOSINOPHILS % 6.5 % (0.0-6.0); HEMOGLOBIN 12.9 g/dL (12.0-16.0); LYMPHOCYTES # (AUTO) 1.1 (1.0-3.2); MEAN CORPUSCULAR HGB CONC 32.3 g/dL (31-35); MEAN CORPUSCULAR VOLUME 102.3 fL (81-99); MONOCYTES # (AUTO) 0.7 (0.2-0.8); MONOCYTES % 12.4 % (4.4-11.3); NEUTROPHILS # (AUTO) 3.6 (2.1-6.9); NEUTROPHILS % 59.9 % (38.7-80.0); PLATELET COUNT 209 x10e3/uL (140-360); RED BLOOD COUNT 3.91 x10e6/uL (3.6-5.1); RED CELL DISTRIBUTION WIDTH 12.9 % (11.7-14.4)
[~2021-10-14] MED LIST changes: +ALPHA LIPOIC A100 MG PO; +ALTOPREV40 MG PO; -IOPAMIDOL 200 MG/ML 20 ML VIAL IT ONE; +JANUVIA25 MG PO; -LIDOCAINE HCL 1% 30ML-PF VIAL ONE; +MAGNESIUM OXID400 MG PO; +SPIRONOLACTONE25 MG PO; +TRAZODONE HCL100 MG PO; -TRIAMCINOLONE ACET 40 MG/ML VIAL ONE; +VIT C PO; +VIT D PO
[2021-10-14 10:30] VITALS: BP 149/70
== END | disposition home or self-care (01) ==
LOC: OR 07:32
PROVIDERS: ATTEND Internal Medicine Gastroenterology
DX: K29.60 Other gastritis without bleeding (principal); K22.2 Esophageal obstruction; K20.90 Esophagitis, unspecified without bleeding; K44.9 Diaphragmatic hernia without obstruction or gangrene; K21.9 Gastro-esophageal reflux disease without esophagitis; K59.09 Other constipation; R63.4 Abnormal weight loss; E11.9 Type 2 diabetes mellitus without complications; E03.9 Hypothyroidism, unspecified; J45.909 Unspecified asthma, uncomplicated; I10 Essential (primary) hypertension; H40.9 Unspecified glaucoma; H35.30 Unspecified macular degeneration; Z91.048 Other nonmedicinal substance allergy status; Z01.810 Encounter for preprocedural cardiovascular examination; Z01.812 Encounter for preprocedural laboratory examination; Z20.822 Contact with and (suspected) exposure to COVID-19; Z79.84 Long term (current) use of oral hypoglycemic drugs; Z79.02 Long term (current) use of antithrombotics/antiplatelets; Z79.899 Other long term (current) drug therapy; Z68.34 Body mass index [BMI] 34.0-34.9, adult; Z86.718 Personal history of other venous thrombosis and embolism
CPT/HCPCS: 36415 ×2; 43239; 43450; 82948; 85025; 93005; C9113; J2001; J2704; U0002

== ENCOUNTER → 2021-11-05 | Outpatient (CLI) | payer MEDICARE, OTHER ==
[~2021-11-05] MED LIST changes: +IOPAMIDOL 370 MG/ML 200 ML INFUS..BTL INJ ONE; -LIDOCAINE HCL 2% LOCAL INJ 5 ML SDV VIAL INJ ONE; -PROPOFOL IV EMULSION 10 MG/ML 20 ML VIAL ONE; +SODIUM CHLORIDE 0.9% 500ML 500 ML ONE; +SODIUM CHLORIDE 0.9% 50ML 50 ML ONE
[2021-11-05 08:24] LABS: CREATININE, SERUM 1.36 mg/dL (0.57-1.11)
== END ==
LOC: CT 07:00
PROVIDERS: ATTEND Internal Medicine Gastroenterology
DX: R10.31 Right lower quadrant pain (principal)
CPT/HCPCS: 36415; 74177; 82565; 84520; 96360; J7040; Q9967

== ENCOUNTER → 2022-06-16 | Day surgery (SDC) | payer MEDICARE, OTHER ==
[2022-06-14 08:56] LABS: BASOPHILS # (AUTO) 0.1 (0.0-0.1); BASOPHILS % 1.3 % (0.0-1.0); EOSINOPHILS # (AUTO) 0.3 (0.0-0.4); EOSINOPHILS % 5.6 % (0.0-6.0); HEMATOCRIT 38.9 % (34.2-44.1); HEMOGLOBIN 12.7 g/dL (12.0-16.0); LYMPHOCYTES # (AUTO) 1.1 (1.0-3.2); LYMPHOCYTES % 20.4 % (18.0-39.1); MEAN CORPUSCULAR HEMOGLOBIN 32.9 pg (28-32); MEAN CORPUSCULAR HGB CONC 32.6 g/dL (31-35); MEAN CORPUSCULAR VOLUME 100.8 fL (81-99); MONOCYTES # (AUTO) 0.6 (0.2-0.8); NEUTROPHILS # (AUTO) 3.3 (2.1-6.9); NEUTROPHILS % 61.1 % (38.7-80.0); PLATELET COUNT 197 x10e3/uL (140-360); RED BLOOD COUNT 3.86 x10e6/uL (3.6-5.1); RED CELL DISTRIBUTION WIDTH 11.5 % (11.7-14.4)
[~2022-06-16] MED LIST changes: +FENTANYL CITRATE/PF 100MCG/2 ML INJ ONE; -IOPAMIDOL 370 MG/ML 200 ML INFUS..BTL INJ ONE; +LIDOCAINE HCL 2% LOCAL INJ 5 ML SDV VIAL INJ ONE; +NITROFURANTOIN50 MG PO; +OMEGA-31000 MG PO; +PROPOFOL IV EMULSION 10 MG/ML 20 ML VIAL ONE; +PROTONIX20 MG PO; -SODIUM CHLORIDE 0.9% 500ML 500 ML ONE; -SODIUM CHLORIDE 0.9% 50ML 50 ML ONE
[2022-06-16 09:35] VITALS: BP 110/60
== END | disposition home or self-care (01) ==
LOC: OR 07:21
PROVIDERS: ATTEND Internal Medicine Gastroenterology
DX: K59.00 Constipation, unspecified (principal); Z86.010 Personal history of colon polyps; K64.8 Other hemorrhoids; G47.33 Obstructive sleep apnea (adult) (pediatric); E11.9 Type 2 diabetes mellitus without complications; G57.93 Unspecified mononeuropathy of bilateral lower limbs; M19.042 Primary osteoarthritis, left hand; M19.041 Primary osteoarthritis, right hand; J45.909 Unspecified asthma, uncomplicated; K21.9 Gastro-esophageal reflux disease without esophagitis; F95.9 Tic disorder, unspecified; I10 Essential (primary) hypertension; Z01.810 Encounter for preprocedural cardiovascular examination; Z01.812 Encounter for preprocedural laboratory examination; Z79.02 Long term (current) use of antithrombotics/antiplatelets; Z79.84 Long term (current) use of oral hypoglycemic drugs; Z79.899 Other long term (current) drug therapy; Z86.718 Personal history of other venous thrombosis and embolism
CPT/HCPCS: 36415 ×2; 45378; 82948; 85025; 93005; J2001; J2704; J3010

== ENCOUNTER → 2023-03-23 | Day surgery (SDC) | payer MEDICARE, OTHER ==
[2023-03-16 11:33] LABS: BASOPHILS # (AUTO) 0.1 (0.0-0.1); BASOPHILS % 1.1 % (0.0-1.0); EOSINOPHILS # (AUTO) 0.3 (0.0-0.4); EOSINOPHILS % 4.7 % (0.0-6.0); HEMATOCRIT 40.1 % (34.2-44.1); HEMOGLOBIN 13.4 g/dL (12.0-16.0); LYMPHOCYTES % 18.7 % (18.0-39.1); MEAN CORPUSCULAR HEMOGLOBIN 32.2 pg (28-32); MEAN CORPUSCULAR HGB CONC 33.4 g/dL (31-35); MEAN CORPUSCULAR VOLUME 96.4 fL (81-99); MONOCYTES # (AUTO) 0.5 (0.2-0.8); MONOCYTES % 9.3 % (4.4-11.3); NEUTROPHILS # (AUTO) 3.5 (2.1-6.9); NEUTROPHILS % 65.6 % (38.7-80.0); PLATELET COUNT 211 x10e3/uL (140-360); RED BLOOD COUNT 4.16 x10e6/uL (3.6-5.1); RED CELL DISTRIBUTION WIDTH 12.6 % (11.7-14.4)
[~2023-03-23] MED LIST changes: +GLIPIZIDE ER5 MG PO; +LACTATED RINGER'S 1,000 ML ONE; +PRESERVISION L1 EAC1 PO; +[UNRECOGNIZED DRUG - REMARK] PO
[2023-03-23 07:45] VITALS: BP 151/68; PULSE 52; RESP 14; O2SAT 98
== END | disposition home or self-care (01) ==
LOC: OR 05:30
PROVIDERS: ATTEND Internal Medicine Gastroenterology
DX: K29.50 Unspecified chronic gastritis without bleeding (principal); K31.819 Angiodysplasia of stomach and duodenum without bleeding; K21.9 Gastro-esophageal reflux disease without esophagitis; G47.33 Obstructive sleep apnea (adult) (pediatric); J45.909 Unspecified asthma, uncomplicated; E11.9 Type 2 diabetes mellitus without complications; E03.9 Hypothyroidism, unspecified; Z01.810 Encounter for preprocedural cardiovascular examination; Z01.812 Encounter for preprocedural laboratory examination; Z79.84 Long term (current) use of oral hypoglycemic drugs; Z79.02 Long term (current) use of antithrombotics/antiplatelets; Z79.899 Other long term (current) drug therapy; Z68.30 Body mass index [BMI] 30.0-30.9, adult
CPT/HCPCS: 36415 ×2; 43239; 82948; 85025; 88305; 88342; 93005; J2001; J2704; J3010; J7121

== ENCOUNTER → 2024-10-30 | Outpatient (REF) | payer MEDICARE, OTHER ==
[~2024-10-30] MED LIST changes: +CEFDINIR300 MG PO; -FENTANYL CITRATE/PF 100MCG/2 ML INJ ONE; -LACTATED RINGER'S 1,000 ML ONE; -LIDOCAINE HCL 2% LOCAL INJ 5 ML SDV VIAL INJ ONE; -PROPOFOL IV EMULSION 10 MG/ML 20 ML VIAL ONE
== END ==
LOC: MRI 07:32
PROVIDERS: ATTEND Anesthesiology
DX: M54.14 Radiculopathy, thoracic region (principal); M54.16 Radiculopathy, lumbar region
CPT/HCPCS: 72146; 72148